=== PATIENT | male | born 1965 | race Caucasian/White ===

== ENCOUNTER 2024-10-16 22:39 | Inpatient (IN) | payer BC, SELFPAY ==
[2024-10-16] VITALS (38 sets, daily range): BP systolic 71–121; BP diastolic 51–78; BMI 24.4
--- NOTE | 2024-10-16 20:37 | ED.GENMED ---
History of Present Illness
General
Chief Complaint: Fever
Source: patient and spouse
Exam Limitations: none
Time Seen by Provider: 10/16/24 20:28
Nursing documentation reviewed up to this point in time: agreed with
History of Present Illness
History of Present Illness:
58-year-old male presents emergency department due to fever, body aches. Fever ongoing since Tuesday. Profuse sweating. Patient has had episodes of delirium. He began having lower abdominal pain after starting doxycycline. He was also diagnosed
with a hernia. Denies any travel history. He golfs and spends a lot of time outside. He saw urgent care and was diagnosed with pneumonia and given doxycycline.
Past History
Past History
ED Past Medical History: HTN
ED Past Surgical History: Appendectomy and Other (Hernia repair)
Social History
Tobacco: Non-smoker
Alcohol: Daily
Drug: None
Personal:
Living: with family
Employment: Employed
Review of Systems
Review of Systems
Allergies reviewed?: Yes
All Other Systems: Not applicable
Constitutional: Reports fever and chills
EENT: Reports no symptoms
Respiratory: Reports cough
Cardiac: Reports no symptoms
ABD/GI: Reports no symptoms
Phy Exam
Physical Exam
Physical Exam:
Physical Exam
General: Ill-appearing, jaundice, hypotensive
Neck: supple. no meningeal signs. normal posterior pharynx
Heart: s1/s2 regular rate and rhythm, no murmur. equal radial
pulses.
HEENT: Pupils equal round reactive to light, EOMI, sclera icteric
Lungs: no acute respiratory distress. clear bilaterally
Abdomen: normal bowel sounds. not tender. no CVAT
Neuro: alert and oriented. no focal neurological deficits cranial nerves II through XII intact
Skin: no rash
Psychiatric: well kept. interactive and cooperative
Extremities: no edema. no calf tenderness. negative homans. good distal pulses
Sepsis
Sepsis Screening
Sepsis Assessment: Septic Shock
Sepsis Screening: Hypotension, Bilirubin >2mg/dl, Sustained Hypotension-SBP <90,MAP<65, or SBP decrease 40mmHg or more and Vasopressor support required
Sepsis Screen
Sepsis Screen: Septic Shock
Date: 10/16/24
Time: 20:35
Course
Orders/Labs/Results
Orders:
Orders
10/16/24 20:29
Electrocardiogram (*1) Urgent
Reason for Study: Other
Other Reason for Exam: sepsis
Cardiac Monitoring- Treatment ONCE
EKG- Treatment ONCE
IV Insert/Care/Rem.- Treatment PRN
CR Chest Portable - 1 View Urgent
Comment:
Reason For Exam: short of breath, hypotensive
Reason Study Needs to be Portable: Patient Unstable
Pulse Ox/cont/shift [RESP] Urgent
Quantity: 1
10/16/24 20:31
0.9% Sodium Chloride 1000 ml [Nss] 2,000 ml IV BOLUS
10/16/24 20:52
Complete Blood Count/With Diff Urgent
Comprehensive Metabolic Panel Urgent
Direct Bilirubin Urgent
Comment: ADD ON
LDH Urgent
Comment: ADD ON
Lactic Acid Q4H
Comment: CANCEL 2nd LACTIC ACID IF 1st LACTIC ACID IS LESS THAN 2
Lipase Urgent
Manual Differential Urgent
PTT Urgent
Prothrombin Time Urgent
Blood Culture Q30M
BREANNA Source: Blood/Venous
Specimen Description:
Blood Culture Q30M
BREANNA Source: Blood/Venous
Specimen Description:
Influenza A+B Rapid Molecular Urgent
BREANNA Source: Nasal Swab
Specimen Description:
10/16/24 21:04
COVID-19 Antigen Urgent
Source: Nasal Swab
10/16/24 21:48
NORepinephrine 4 MG/250 ML [Levophed] 4 mg in 250 ml .ROUTE .STK-MED
10/16/24 21:49
NORepinephrine 4 MG/250 ML [Levophed] 4 mg in 250 ml IV NOW
Initial dose in mcg/min, then titrate:: 4
Titrate to keep:: MAP > 65 mmHg
Titrate by mcg/min:: 1-2 mcg/min
Frequency of titrations (minutes):: 5
Maximum dose in ICU in mcg/min:: 30
Maximum dose in IMU in mcg/min:: 8
Maximum dose in IVU in mcg/min:: 4
Begin to taper infusion when:: Remained at goal for 4hrs
Taper by mcg/min:: 1-2 mcg/min
Frequency of taper (minutes) if patient maintains goal:: 30
Taper to off?: Yes
If infusion off & no longer maintaining goal:: Contact Provider
10/16/24 22:00
Babesia Smear [Blood Parasites] Urgent
BREANNA Source: Blood/Venous
Specimen Description:
10/16/24 22:04
Azithromycin 500 mg/250 ml [Zithromax Infusion] 500 mg in 250 ml IV NOW
10/16/24 22:15
Atovaquone [Mepron Suspension] 750 mg PO NOW STA
10/16/24 22:16
Potassium Chloride [KCl] 40 meq PO NOW STA
10/16/24 22:26
US Abdomen Complete/Upper Routine
Comment:
Reason For Exam: elevated LFT
10/16/24 22:27
Add On- LAB Urgent
Tests Added?: direct bili, LDH
10/16/24 22:28
Admit/Transfer Patient As Directed
Co-Sign Provider:
Level of Care: Inpatient admission
Assign to:: ICU
Physician / Group: therese
Diagnosis: Babesiosis
Reason for Hospitalization: babesiosis
Expected length of stay greater than two midnights?: Yes
ELOS- Estimated Length of Stay in days: 3
I certify the patient meets the requirements for IP care: Yes
PRN Pain Medication Management As Directed
May give lesser potent ordered pain med per pt: Yes
preference::
Protocol:: Medication orders for pain may be administered in a
manner that supports deferring to patient preference
when the pt is:
- Requesting an ordered lesser potent pain medication.
Least to most potent pain medications are defined
as: acetaminophen < NSAID < tramadol < opioids
(morphine, oxycodone, hydromorphone).
- Requesting a lesser dose of the same medication IF
ORDERED.
- Requesting a less intrusive route of administration
if both routes are prescribed by the provider (PO <
IV).
10/16/24 22:29
Code Status As Directed
Resuscitation Status: Full Code
10/16/24 22:45
Blood Culture Q30M
BREANNA Source: Blood/Venous
Specimen Description:
10/16/24 23:15
Blood Culture Q30M
BREANNA Source: Blood/Venous
Specimen Description:
10/16/24 23:42
Urinalysis Reflex To Culture Urgent
Date Specimen was Collected: 10/16/24
Time Specimen was Collected: 23:41
10/17/24 00:01
0.9% Sodium Chloride 1000 ml [Nss] 1,000 ml IV 100 mls/hr
Bisacodyl [Dulcolax] 10 mg RECTAL [id number] PRN
Docusate W/Senna [Senokot-S] 1 tablet PO BIDPRN PRN
Ibuprofen [Motrin] 400 mg PO Q6HPRN PRN
NORepinephrine 4 MG/250 ML [Levophed] 4 mg in 250 ml IV PER PROTOCOL
Currently infusing. Continue current dose and titrate:: Yes
Titrate to keep:: SBP > 90 mmHg
Titrate by mcg/min:: 1-2 mcg/min
Frequency of titrations (minutes):: 5
Maximum dose in ICU in mcg/min:: 30
Maximum dose in IMU in mcg/min:: 8
Maximum dose in IVU in mcg/min:: 4
Begin to taper infusion when:: Remained at goal for 4hrs
Taper by mcg/min:: 1-2 mcg/min
Frequency of taper (minutes) if patient maintains goal:: 30
Taper to off?: Yes
If infusion off & no longer maintaining goal:: Contact Provider
Polyethylene Glycol Powder [Miralax] 17 grams PO DAILYPRN PRN
10/17/24 00:01
INFECTIOUS DISEASE CONSULT Routine
Consulting Provider: Lilly Gentile
Was physician already notified: Yes
NEPHROLOGY CONSULT Routine
Consulting Provider: Galilea Angel
Was physician already notified: Yes
Activity As Directed
Activity Level: As Tolerated
Vital Signs As Directed
Frequency: Per unit guidelines
DX Deep Vein Thrombosis Video Routine
10/17/24 00:15
Lyme PCR, DNA [S] Routine
10/17/24 Breakfast
Regular
At Your Request: Full Participation
Comprehensive Metabolic Panel IN AM
LDH IN AM
Lyme Progressive Routine
Reticulocyte Count IN AM
10/17/24 08:00
Atovaquone [Mepron Suspension] 750 mg PO Q12
10/17/24 18:00
Enoxaparin Sodium [Lovenox] 40 mg SC QPM
10/17/24 22:00
Azithromycin 500 mg/250 ml [Zithromax Infusion] 500 mg in 250 ml IV Q24H
Paroxetine [Paxil] 20 mg PO HS
10/18/24 06:00
Complete Blood Count/No Diff IN AM
Comprehensive Metabolic Panel IN AM
10/19/24 06:00
Complete Blood Count/No Diff IN AM
Comprehensive Metabolic Panel IN AM
10/20/24 06:00
Complete Blood Count/No Diff IN AM
Comprehensive Metabolic Panel IN AM
Abnormal Lab Results
10/16/24
20:52
RBC 3.11 L 10^6/uL
(4.70-6.10)
Hgb 10.9 L g/dL
(13.0-18.0)
Hct 29.1 L %
(39.0-52.0)
MCH 35.0 H pg
(27.0-31.0)
MCHC 37.5 H g/dL
(33.0-37.0)
Plt Count 33 L 10^3/uL
(130-400)
Lymphocytes (Manual) 11 L %
(20-51)
Monocytes (Manual) 12 H %
(2-9)
PT 15.0 H Sec
(11.4-14.6)
Sodium 123 L mmol/L
(135-145)
Potassium 3.2 L mmol/L
(3.5-5.1)
BUN 30 H mg/dl
(9-20)
Glucose 137 H mg/dl
(70-99)
Calcium 7.9 L mg/dl
(8.4-10.2)
Total Bilirubin 4.2 H mg/dl
(0.2-1.3)
Direct Bilirubin 1.8 H mg/dl
(0.0-0.4)
AST 95 H U/L
(17-59)
ALT 56 H U/L
(0-50)
Alkaline Phosphatase 132 H U/L
(38-126)
Lactate Dehydrogenase 995 H U/L
(120-246)
Albumin 2.9 L g/dl
(3.5-5.0)
10/16/24 20:52
10/16/24 20:52
Vital Signs
Initial and Last Documented VS:
Initial Vital Signs
Temp Pulse Resp BP Pulse Ox
99.7 F 96 18 80/53 98
10/16/24 20:15 10/16/24 20:15 10/16/24 20:15 10/16/24 20:15 10/16/24 20:15
Last Documented Vital Signs
Temp Pulse Resp BP Pulse Ox
100.5 F H 95 18 100/64 99
10/17/24 00:00 10/17/24 00:00 10/17/24 00:00 10/17/24 00:00 10/17/24 00:00
MDM/Problems Addressed
Differential Diagnosis Includes:
Pneumonia, diverticulitis
MDM/Problems Addressed:
58-year-old male with babesiosis, hyponatremia, thrombocytopenia, hypokalemia, hyperbilirubinemia, transaminitis. IV azithromycin, p.o. atovaquone given. Discussed with infectious disease and nephrology.
Chronic conditions affecting care: HTN
*Radiology
Radiology exam reviewed: radiology read reviewed (Chest x-ray no acute findings)
*Pulse Oximetry
SaO2: 98
Oxygen Mode of Delivery: Room air
Patient hypoxic: no
*EKG
Interpreted by ED Provider?: Yes
EKG Intrepretation Date: 10/16/24
EKG Intrepretation Time: 21:18
Interpretation: normal
Comparison EKG: no changes
Heart Rate: 92
Rate: normal
Rhythm: sinus
[place]: normal axis
Interval: normal interval
QRS Pattern: normal QRS
Ischemia: no ischemia
*Leno Sewer Interpretation
Rate: normal
Interpretation: normal
Heart Rate: 90
Rhythm: sinus
*Critical Care Note
Total Time (30-74mins, 75-104mins- exclusive of procedures): 55
comment:
Critical care statement: A total of 55 minutes of critical care time was provided for this patient. This includes management of unstable vital signs, evaluation of the patient at bedside, reviewing the patient's pertinent medical records, discussion
with consultants, review of old EKGs and review of pertinent medical records. This time with separate from time utilized to perform the aforementioned documented procedures
Data Reviewed
Further Testing Considered But Not Given:
ct a/p not indicated
ED Attending Note
-
Portions of this chart may have been created with voice recognition software.� Occasional wrong word or��sound alike� substitutions may have occurred due to the inherent limitations of voice recognition software.
Discharge Plan
Departure
Patient Disposition: Admit
Date of Disposition: 10/16/24
Time of Disposition: 22:08
Admit to: ICU
Presentation/result/management discussed w/ accepting MD/DO: Hospitalist
Patient with high blood pressure during this ER visit?: No
Condition: Fair
Discharge Problem:
Babesiosis, Thrombocytopenia, Acute hyponatremia, Hyperbilirubinemia, Transaminitis
Interventions
Interventions:
*Risk Screen - Suicide Last Done: 10/16/24 20:15
*General Assessment Last Done: 10/16/24 21:08
*Neglect/Abuse Screening Last Done: 10/16/24 20:15
*ED- Fall Risk Assessment Last Done: 10/16/24 21:08
*ED COVID-19 Vaccine History Last Done: 10/16/24 21:08
*Nursing Disposition Last Done: 10/17/24 00:07
ED- Neurological Assessment Last Done: 10/16/24 21:09
ED-Skin Assessment Last Done: 10/16/24 21:09
Discharge Date and Time
Discharge Date/Time: 10/17/24 00:08
[2024-10-16] MEDS: NSS 2000 IV (20:51)
[2024-10-16 21:10] LABS: INR 1.15; PT 15.0 Sec (11.4-14.6)
[2024-10-16 21:11] LABS: APTT 34.5 Sec (23.4-35.0)
[2024-10-16 21:18] LABS: ALT (SGPT) 56 U/L (0-50); AST (SGOT) 95 U/L (17-59); Albumin 2.9 g/dl (3.5-5.0); Alkaline Phosphatase 132 U/L (38-126); Blood Urea Nitrogen 30 mg/dl (9-20); Calcium 7.9 mg/dl (8.4-10.2); Carbon Dioxide 25 mmol/L (22-30); Chloride 100 mmol/L (98-107); Estimated Creatinine Clearance 76 ml/min; Glucose 137 mg/dl (70-99); Lipase 88 U/L (23-300); Potassium 3.2 mmol/L (3.5-5.1); Sodium 123 mmol/L (135-145); Total Protein 6.3 g/dl (6.3-8.2); eGFR > 60.00
[2024-10-16 21:26] LABS: Hematocrit 29.1 % (39.0-52.0); Hemoglobin 10.9 g/dL (13.0-18.0); Mean Corp Hgb Conc. 37.5 g/dL (33.0-37.0); Mean Corpuscular Volume 93.6 fL (80.0-94.0); Red Cell Dist. Width 13.3 % (11.5-14.5)
[2024-10-16 21:29] LABS: COVID-19 Antigen Negative (Negative)
[2024-10-16 21:53] LABS: Absolute Neutrophils -Man Diff 3.8 10^3/uL (1.4-6.5)
[2024-10-16] MEDS: LEVOPHED 250 IV (21:53)
[2024-10-16 21:54] LABS: Anisocytosis 1+; Macrocytosis 1+; Normal RBC Morphology No; Platelets Checked Yes
[2024-10-16 21:57] LABS: Hypochromasia 1+; Platelet Count 33 10^3/uL (130-400); Total Cells Counted 100
--- NOTE | 2024-10-16 22:11 | HPS.HSE ---
Family Physician
-
Family Physician: PHYSICIAN PRIVATE
Chief Complaint
-
fever
History of Present Illness
58 year old with PMH for HTN presented to us with fever, generalized weakness, cough for past 5 days. he was confused today and his temp was 103 at home. took Tylenol. he complained of SINGH, dizzy. denied chest pain, sob. he is complaining of
abdominal pain. denied n/v/d. denied dysuria or hematuria.
conern for Babesios. receieved a dose of Atovaquone, Azithromycin. started on Levophed for hypotension. admiting for further management.
Medical History
Past Medical History
Past Medical History: Reports Other
Additional Past Medical History:
HTN
Past Surgical History: Reports Other
Additional Past Surgical History:
appendectomy
hernia surgery
Social History
Tobacco: Former Smoker
Alcohol: Occasional
Drug: None
Personal:
Living: With Family
Family History
Family History: Not pertinent
Allergies / Home Medications
Allergies reflects when Allergies were last updated in [email or web address]
Home Medications with original date entered in [email or web address].
Allergy/Medication List:
Allergies
Allergy/AdvReac Type Severity Reaction Status Date / Time
No Known Allergies Allergy Unverified 10/16/24 20:14
Home Medications
acetaminophen 500 mg tablet (Tylenol Extra Strength) 1,000 mg PO Q6HPRN PRN mild pain/fever 10/16/24
bisoprolol 5 mg-hydrochlorothiazide 6.25 mg tablet 1 tab PO HS 10/16/24
doxycycline hyclate 100 mg capsule 100 mg PO BID 10/16/24
ibuprofen 200 mg tablet 600 mg PO Q6HPRN PRN mild pain/fever 10/16/24
yklityhjtxrx-cxw-obopg acid-vit K-lycop 400 mcg-20 mcg-370 mcg tablet (Men's 50 Plus Multivitamin) 1 tab PO HS 10/16/24
paroxetine HCl 20 mg tablet 20 mg PO HS 10/16/24
Review of Systems
-
Constitutional: Reports Fever, Fatigue and Chills
EENT: Reports No Symptoms
Respiratory: Reports Cough
Cardiac: Reports No Symptoms
Abdomen/GI: Reports No Symptoms
: Reports No Symptoms
Musculoskeletal: Reports No Symptoms
Skin: Reports No Symptoms
Neurological: Reports Dizzy, Headache and Weakness
Endocrine: Reports No Symptoms
Hematologic/Lymphatic: Reports No Symptoms
Psych: Reports No Symptoms
Physical Exam
Vital Signs
Vital Signs
Temp Pulse Resp BP Pulse Ox
99.7 F 84 27 98/63 97
10/16/24 20:15 10/16/24 21:55 10/16/24 21:55 10/16/24 21:55 10/16/24 21:55
Physical Exam
General: Well Developed, Well Nourished and No Apparent Distress
HEENT: NormoCephalic, Moist mucous membranes and Atraumatic
Respiratory: Clear
Cardiac: S1/S2 and Regular Rhythm; No Murmur or Rub
GI: Soft, Non Tender, Non Distended and Normal Bowel Sounds; No Organomegaly
Rectal: Deferred by Provider
Musculoskeletal: No Clubbing, No Cyanosis and No Edema
Skin: No Rash
Neuro: AO x 3 and Nonfocal/grossly intact
Psych: Calm
Laboratory Results
-
10/16/24 20:52
10/16/24 20:52
Laboratory Results
PT 15.0 Sec (11.4-14.6) H 10/16/24 20:52
INR 1.15 10/16/24 20:52
APTT 34.5 Sec (23.4-35.0) 10/16/24 20:52
Lactic Acid 1.8 mmol/L (0.7-2.0) 10/16/24 20:52
Total Bilirubin 4.2 mg/dl (0.2-1.3) H 10/16/24 20:52
AST 95 U/L (17-59) H 10/16/24 20:52
ALT 56 U/L (0-50) H 10/16/24 20:52
Alkaline Phosphatase 132 U/L (38-126) H 10/16/24 20:52
Lipase 88 U/L (23-300) 10/16/24 20:52
Data Reviewed
-
Lab Data: Labs Reviewed by me
Impression/Plan
-
#septic shock secondary to Babesiosis
-on Levophed
-zithro and atovaquone continued
-ID consulted
-Tylenol prn for fever
-platelets 94
-blood culture sent from ER
#Hyponatremia hypovolemic
#hypokalemia
-na 123, k3.2
-normal saline continued
-BMP in am
-oral kcl
#transaminitis/jaundice secondary to Babesiosis
-ctm
-US of abdomen ordered
#essential HTN
-hold Bisoprolol-hctz
#anxiety
-Paxil continued
#DVT prophylaxis
-Lovenox
#CODE status
-full code
--- NOTE | 2024-10-16 22:27 | W.PN.UPDATE ---
Update Note
Progress Note Update
I have independently examined the patient and agree with H&P written on the same date. In addiion:
58yo M with 4-5 days of malaise, fever found erythrocyte inclusions in hematology bloodwork, concern for babesiosis with signs of hemolysis (elevated bili). No RUQ abd pain noted. Concominant hyponatremia
- As per ID reccs provided to ED attending: Azythromycin and Atovaquone
-check Lyme
-Follow LDH, retics, Hgb, LFT
-IVF, follow BMP, Nephro consult
-Monitor in ICU
We have spent at least 78min critical care time admitting the patient
[2024-10-16] MEDS: MEPRON SUSPENSION 750 MG PO (22:48)
[2024-10-16] MEDS: ZITHROMAX INFUSION 250 IV (22:48)
[2024-10-16 23:01] LABS: LDH 995 U/L (120-246)
[2024-10-16] MEDS: KCL 40 MEQ PO (23:36)
[2024-10-17] VITALS (55 sets, daily range): BP systolic 79–125; BP diastolic 53–82; BMI 24.6
[2024-10-17 00:01] LABS: Urine Character Cloudy (Clear)
[2024-10-17 00:09] LABS: Glucose - Point of Care 184 mg/dl (70-99)
[2024-10-17] MEDS: NSS 1000 IV ×3 (00:22→19:59)
[2024-10-17] MEDS: MOTRIN 400 MG PO (00:39)
--- NOTE | 2024-10-17 01:00 | PTCARENOTE ---
rec`d pt from ED AAOx3. assessment as documented. SR on monitor. RA. non productive harsh cough. reg diet. urinal. PIVS flushed and patent. at bedside. KELSI Abbott at bedside.
--- NOTE | 2024-10-17 01:00 | PTCARENOTE ---
pt increased to 8L NC per [employer]PER[employer]IAL verbal orders.
[2024-10-17 01:03] LABS: Urine Squamous Cell None seen /LPF (Few)
--- NOTE | 2024-10-17 02:02 | W.PN.UPDATE ---
Update Note
Progress Note Update
0100- Patient having increased work of breathing oxygen saturation on monitor was 95%, belly breathing and RR 28. Hemolytic anemia, and now increased work of breathing increased oxygen nasal cannula to midflow 8 L.
[2024-10-17 05:19] LABS: B.E. -0.8 mmol/L; HCO3 23.2 mmol/L (21-28); O2 Saturation % 98.7 % (94-98); PCO2 35 mmHg (35-48); PO2 189 mmHg (83-108)
[2024-10-17 05:35] LABS: Hematocrit 27.5 % (39.0-52.0); Hemoglobin 10.0 g/dL (13.0-18.0); Mean Corp Hgb Conc. 36.4 g/dL (33.0-37.0); Mean Corpuscular Volume 94.8 fL (80.0-94.0); Platelet Count 45 10^3/uL (130-400); Red Cell Dist. Width 13.2 % (11.5-14.5); Reticulocyte Count 7.2 % (0.4-2.8)
[2024-10-17 05:37] LABS: INR 1.24; PT 15.9 Sec (11.4-14.6)
[2024-10-17 05:38] LABS: APTT 34.9 Sec (23.4-35.0)
--- NOTE | 2024-10-17 05:58 | W.PN.SEPSIS ---
Sepsis
Vital Signs
Temp Pulse Resp BP Pulse Ox
100 F 65 20 110/79 100
10/17/24 03:06 10/17/24 05:15 10/17/24 05:15 10/17/24 05:00 10/17/24 05:15
Physical Exam
Physical Exam:
A focused exam was performed after fluid resuscitation.
Capillary Refill
Bilateral Upper Extremity:
Remy Time: Less than 3 sec
Bilateral Lower Extremity:
Remy Time: Less than 3 sec
Pulse Evaluation
Bilateral Radial:
Pulse Evaluation: Present
Bilateral Dorsalis Pedis:
Pulse Evaluation: Present
[2024-10-17 05:59] LABS: ALT (SGPT) 56 U/L (0-50); AST (SGOT) 80 U/L (17-59); Albumin 2.5 g/dl (3.5-5.0); Alkaline Phosphatase 110 U/L (38-126); Blood Urea Nitrogen 23 mg/dl (9-20); Calcium 7.1 mg/dl (8.4-10.2); Carbon Dioxide 24 mmol/L (22-30); Chloride 107 mmol/L (98-107); Estimated Creatinine Clearance 101 ml/min; Glucose 189 mg/dl (70-99); Magnesium 2.0 mg/dl (1.6-2.3); Potassium 3.5 mmol/L (3.5-5.1); Sodium 129 mmol/L (135-145); Total Protein 5.6 g/dl (6.3-8.2); eGFR > 60.00
[2024-10-17 06:08] LABS: LDH 945 U/L (120-246)
[2024-10-17] MEDS: FLEXBUMIN 100 IV (06:18)
[2024-10-17] MEDS: KCL 40 MEQ PO (06:18)
[2024-10-17 06:20] LABS: Absolute Neutrophils -Man Diff 4.6 10^3/uL (1.4-6.5)
[2024-10-17] MEDS: LEVOPHED 250 IV (06:20)
[2024-10-17] MEDS: CALCIUM GLUCONATE 100 IV (06:20)
[2024-10-17 06:21] LABS: Anisocytosis 1+; Normal RBC Morphology No; Platelets Checked Yes; Total Cells Counted 100
--- NOTE | 2024-10-17 07:08 | CON.INTV ---
Addendum entered and electronically signed by Candice Alvarez MD 10/17/24 12:40:
Patient seen and examined independently by myself. Resident note reviewed below, agree with assessment and plan
Briefly, patient is an otherwise healthy 58-year-old male whose history dates back to prior to admission when he developed fevers, body aches, sweats. The symptoms persist along with headaches, dizziness. He was evaluated in urgent care
on Tuesday, was told he had pneumonia and was given antibiotic with no improvement. Because of persistent symptoms he brought himself in to [facility] where he was found to have blood pressure 70/50, febrile, hyponatremia, acute
transaminitis, abnormal urine analysis, anemia and thrombocytopenia with reticulocytosis. Patient had abnormal blood smear, blood smear revealed Babesia species. Patient was given IV fluids, required pressors, started on atovaquone and
azithromycin. Patient mated to ICU for further management
Presently, patient is feeling much improved. He denies any shortness of breath, chest pain, nausea, abdominal pain. He did require 8 L mid flow through the night but denies any symptoms
Details regarding past medical history, social history, family history, review of systems please see below. Patient denies any allergies
Presently systolic pressure 110s, afebrile, no evidence of tachycardia. 100% on 8 L mid flow
Physical exam is essentially unremarkable, chest exam is clear
There is no rash
Data reviewed
Platelets 45
Hemoglobin 10, baseline around 13
EKG unremarkable
A/P
At this time, patient remains critically ill requiring pressors but seems to be improved clinically following IV fluids, antibiotics
Blood smear positive for babesiosis
Patient denies any significant outdoor activity but traveled throughout the [place] with work
Denies any sick contacts, denies any recent travel
Patient denies any abdominal pain, nausea
Moving forward
Continue with azithromycin, dosing noted
Continue with atovaquone
Follow hemoglobin, check CBC later p.m.
Follow electrolytes
Wean oxygen
Hyperglycemia noted. Check hemoglobin A1c
reviewed with critical care nursing, respiratory care, pharmacy
Reviewed with primary service
TCCT 31 min
Original Note:
Consultation
Consultation Request
Date/Time Consultation Requested: October 17, 2024 06:30
Date/Time Consultation Performed: October 17, 2024 07:00
Medical History
-
Chief Complaint: weakness
History of Present Illness:
58 yo M PMH of HTN, hernia p/w fever, body aches, sweating, cough for 5 days duration. Endorsed headache, dizziness, confusion, but denies chest pain, dyspnea. Endorsed abdominal pain but denies nausea/vomiting/diarrhea.
In the ED, was found to be hypotensive with BP of 80s/50s, received 2 L normal saline, repeat BP was 100s/60s.
An erythrocyte smear was noted for inclusion bodies raising the concern for babesiosis.
Given the initial presentation with suspected infection and hypotension requiring pressors, he was admitted to ICU for further management.
Interim events/this AM: he reports feeling well.
Past Medical History
Past Medical History: HTN
Past Surgical History: Other (appendectomy, hernia repair)
Social History
Tobacco: Former Smoker
Alcohol: Occasional
Drug: None
Personal:
Living: With Family
Allergies / Home Medications
Allergies
Allergy/AdvReac Type Severity Reaction Status Date / Time
No Known Allergies Allergy Unverified 10/16/24 20:14
Home Medications
�Medication �Instructions �Recorded �Confirmed �Last Taken �Type
acetaminophen 500 mg tablet 1,000 mg PO Q6HPRN PRN mild 10/16/24 10/16/24 10/16/24 History
(Tylenol Extra Strength) pain/fever
bisoprolol 5 1 tab PO HS 10/16/24 10/16/24 10/15/24 History
mg-hydrochlorothiazide 6.25 mg
tablet
doxycycline hyclate 100 mg capsule 100 mg PO BID 10/16/24 10/16/24 10/16/24 History
ibuprofen 200 mg tablet 600 mg PO Q6HPRN PRN mild 10/16/24 10/16/24 10/16/24 History
pain/fever
lvpakntgmtke-ufi-hoxcz acid-vit 1 tab PO HS 10/16/24 10/16/24 10/15/24 History
K-lycop 400 mcg-20 mcg-370 mcg
tablet (Men's 50 Plus Multivitamin)
paroxetine HCl 20 mg tablet 20 mg PO HS 10/16/24 10/16/24 10/15/24 History
Review of Systems
-
Constitutional: Fever and Fatigue
Respiratory: No Symptoms
Cardiac: No Symptoms
Abdomen/GI: Abdominal Pain
: No Symptoms
Musculoskeletal: No Symptoms
Skin: No Symptoms
Neuro: Dizzy and Headache
Endocrine: No Symptoms
Hematologic/Lymphatic: No Symptoms
Vitals / Labs / Diagnostic Testing
Vital Signs
Temp Pulse Resp BP Pulse Ox
100 F 65 20 110/79 100
10/17/24 03:06 10/17/24 05:15 10/17/24 05:15 10/17/24 05:00 10/17/24 05:15
Lab Data
10/17/24 05:17
10/17/24 05:17
Laboratory Results
10/16/24 10/17/24 10/17/24
20:52 05:13 05:17
PT 15.0 H 15.9 H
INR 1.15 1.24
APTT 34.5 34.9
pH 7.43
pCO2 35
pO2 189 H
HCO3 23.2
O2 Delivery Level
Microbiology
Labs:
WBC within normal limits at 5.7
Hgb of 10.0 (baseline from april 2023 of 14.8)
Plt of 45k
Reticulocyte % elevated at 7.2 (upper limit of normal 2.8%)
Haptoglobin pending
Na+ 129
K+ 3.5
Cr 0.9
Total bilirubin 2.9 (4.2 on admission)
Direct bilirubin 1.5 ((1.8 on admission)
AST 80
ALT 56
LDH 945
Na+ 129
Ca2+ 7.1
Albumin 2.5
K+ 3.5
UA:
Urne occult blood 4+
Urobilinogen 2+
RBC 11-15
Few bacteria
3+ albumin
Microbiology:
Blood parasite smear - babeisa species
Lyme panel pending
Urine, blood cultures pending
10/16/24 20:52 Nasal Swab Influenza Types A & B (THIERRY) - Final
Negative for Influenza A & B, NAAT
Negative results must be combined with clinical observations
and patient history.
Nucleic Acid Amplification test (NAAT)performed on the
[employer] platform.
Diagnostic Testing:
CXR: 10/17/2024
IMPRESSION:
1. Normal heart size without evidence for acute pulmonary edema.
2. No radiographic evidence for pneumonia or pleural effusion.
3. Mild elevation of the left hemidiaphragm.
4. Moderate tortuosity of the distal descending thoracic aorta.
Abdominal Ultrasound 10/17/2024
IMPRESSION:
Normal appearance of the gallbladder.
Common bile duct is mildly dilated, measuring 6.1 mm. No sonographic evidence for bile duct calculus.
Mild hepatomegaly. Mild splenomegaly.
Physical Exam
-
HEENT: Normocephalic
Cardiovascular: Regular Rhythm and Other (no murmurs)
Respiratory: Clear
GI: Soft, Non Distended and Non Tender
Neurology: Awake, Alert and No Motor Deficits
Skin: Warm and Dry
General: Comfortable
Assessment
-
58 yo M PMH HTN p/w fever, weakness, fatigue, headache, dizziness for several days and found to have babesiosis.
It is unclear why this patient, who was otherwise in his usual state of health, would present with signs of sepsis/septic shock given the hypotension, elevated temperature, tachypnea + infection to satisfy SIRS criteria. This raises a concern for
possible immunocompromise. an elevated blood glucose (180s) raises concern for whether underlying DM.
His CBC labs is consistent with hemolysis with indirect hyperbilirubinemia (admission labs had TBili of 4.2, and Direct Bili of 1.8, c/w predominantly indirect hyperbilirubinemia). He has thrombocytopenia, but no signs of bleeding. A follow-up CBC
may be warranted to track Hgb and Plt count.
Neuro:
- awake, alert
CV:
- norepinephrine 4mg
- NS 100 mL/hr
Respiratory:
- RR in 20s
- appropriate SpO2, denies dyspnea
Renal:
- Ca2+ repleted
- Albumin repleted
- K+ repleted
ID:
- azithromycin, atovaquone
- f/u ID reccs
Heme:
- lovenox
- PM CBC to track Hgb and Plt.
Endo:
- Check HbA1c
Plan summary:
- PM CBC
- check HbA1c
- continue antibiotics and follow-up ID recommendations
Recommendations are not final until attending attestation
Data Reviewed
-
Radiology: Report reviewed by me
Ultrasound: Report reviewed by me
--- NOTE | 2024-10-17 08:40 | W.PN.HOSP.TC ---
Addendum entered and electronically signed by Caterina Headley MD 10/17/24 13:09:
Septic Shock 2/2 Babesiosis
-IV levophed, wean as able
-IVF as below
Original Note:
Today's Communication/Plan
-
see plan
Assessment / Plan
Assessment / Plan
Mr. Richar Hope is a 58 yo man with hx essential HTN, depression, presents to the ER with 4-5 days of malaise and fever found to have babesiosis and evidence of hemolysis.
CXR 10/16/24
IMPRESSION:
1. Normal heart size without evidence for acute pulmonary edema.
2. No radiographic evidence for pneumonia or pleural effusion.
3. Mild elevation of the left hemidiaphragm.
4. Moderate tortuosity of the distal descending thoracic aorta.
RUQ US
IMPRESSION:
Normal appearance of the gallbladder.
Common bile duct is mildly dilated, measuring 6.1 mm. No sonographic evidence for bile duct calculus.
Mild hepatomegaly. Mild splenomegaly.
Babesiosis
Transaminitis
Hemolytic Anemia
Thrombocytopenia
-Azythromycin and Atovaquone initiated after discussion between attending and iD
-formal ID consult today
-continue IV Azithromycin and Atovaquone
-check Lyme
-Follow LDH, retics, Hgb, liver enzymes
Hypoxic resp insufficiency
-patient currently denying shortness of breath, SpO2 100%
-weaning O2 as able
-appreciate [employer] Estimator consult
Hyponatremia
-Na improved from 123 to 129 post treatment sepsis
-I will lower fluid rate, trend Na q 6 hours
-Renal consulted
-hold COMMODITIES CLERK HCTZ
Anxiety
-COMMODITIES CLERK Praoxetine, likely OK to continue as Na improving with IVF
DVT PPx SCD 2/2 thrombocytopenia
FULL CODE
Anticipated Discharge: > 48 hours
Subjective/Interval History
-
Date of Service: October 17, 2024
states he is feeling better than when he came in
he denies shortness of breath
denies abdominal pain
Objective Data
-
Labs:
Laboratory Results
10/16/24 10/17/24 10/17/24
20:52 05:13 05:17
WBC 5.3 5.7
Hgb 10.9 L 10.0 L
Hct 29.1 L 27.5 L
Plt Count 33 L 45 L D
PT 15.0 H 15.9 H
INR 1.15 1.24
APTT 34.5 34.9
HCO3 23.2
Sodium 123 L 129 L
Potassium 3.2 L 3.5
Chloride 100 107
Carbon Dioxide 25 24
BUN 30 H 23 H
Creatinine 1.2 0.9
Glucose 137 H 189 H
Calcium 7.9 L 7.1 L
Total Bilirubin 4.2 H 2.9 H
AST 95 H 80 H
ALT 56 H 56 H
Alkaline Phosphatase 132 H 110
10/17/24 10/17/24
11:00 17:00
WBC
Hgb
Hct
Plt Count
PT
INR
APTT
HCO3
Sodium Pending Pending
Potassium
Chloride
Carbon Dioxide
BUN
Creatinine
Glucose
Calcium
Total Bilirubin
AST
ALT
Alkaline Phosphatase
Vital Signs:
Vital Signs
Temp Pulse Resp BP Pulse Ox
97.7 F 64 22 112/72 100
10/17/24 07:34 10/17/24 07:45 10/17/24 07:45 10/17/24 07:30 10/17/24 07:45
I&O
10/16/24 10/17/24 10/18/24
06:59 06:59 06:59
Intake Total 712.5 / 1042.5 330 / 330
Output Total 650 / 1325 675 / 675
Balance 62.5 / -282.5 -345 / -345
Review of Systems
-
History Source: Patient
All other systems: Reviewed and negative
Physical Exam
-
General: No Apparent Distress
HEENT: PERRLA
Respiratory: Clear to Auscultation; Negative Wheezes
Cardiac: Regular Rhythm and S1/S2
GI: Soft and Nontender
Musculoskeletal: No Edema
Skin: Warm and Dry; Negative Rash
Neuro: AO x 3
Psych: Calm
Data Reviewed
-
Diagnostic Radiology: Report Reviewed by me
Labs: Labs Reviewed by me
[2024-10-17] MEDS: MEPRON SUSPENSION 750 MG PO ×2 (08:54→19:56)
--- NOTE | 2024-10-17 09:41 | CON.ID ---
Consultation
-
Date/Time Consultation Requested: October 17, 2024 0001
Date/Time Consultation Performed: October 17, 2024 0940
Requesting Provider: Dr. Caterina Headley
Performing Provider: Dr. Lilly Gentile
Reason for Consultation: Suspected Babesia
Chief Complaint / Past History
Chief Complaint
Weakness, fatigue, fever
History of Present Illness
58-year-old male with history of hypertension who presented to the hospital with jaundice, fever, fatigue. He reports he started feeling unwell approximately October 09 with fatigue and malaise. He was sleeping a lot. Complained of
bodyaches, headache, on and off fevers. By Tuesday, October 13 he felt worse and therefore on Tuesday he went to urgent care. Chest x-ray ordered. He was told he had pneumonia although patient without cough. He was started on doxycycline. He felt
worse on the doxycycline with nausea and GI upset. His fever escalated to 103 and he was confused. Therefore he finally decided to come to the ER last night. Patient noted to be hypotensive with systolic blood pressure in the low 70s.
Temperature 100.5. Platelet 45. Hemoglobin 10. Bilirubin 4.2, mostly indirect, AST ALT elevated. Reticulocyte count elevated. Parasite smear preliminary last night showed ring forms inside red cells. ER started azithromycin 500 mg IV every 24
hours. On-call ID recommended adding atovaquone 750 mg p.o. twice daily. Patient blood pressure did not respond to IV fluids. He is currently on Levophed. Today parasite blood smear resulted as 7.5% babesia. Overnight patient became hypoxic
requiring mid-flow oxygen. Chest x-ray no acute pathology. Today, pt's mental status better. He reports spending time outdoors often including golfing, yardwork, etc. He uses insect repellant pn his face/scalp only.
Past History
Additional Past Medical History:
Hypertension
Anxiety
Additional Past Surgical History:
Appendectomy
Hernia repair
Allergy History:
No Known Allergies Allergy (Unverified 10/16/24 20:14)
Medications Reviewed: Yes
Current Antibiotics:
Atovaquone 750 mg p.o. every 12 hours
Azithromycin 500 mg IV every 24 hours
Social History
Tobacco: Former Smoker
Alcohol: Occasional
Drug: None
Personal:
Living: With Family
Family History
Family History: Not Pertinent
Review of Systems
Review of Systems
General: Fever, Chills and Change in Appetite
HEENT: Headache; Negative Sinus Problems or Pharyngitis
Cardiovascular: Dyspnea; Negative Chest Pain
Respiratory: Negative Cough or Sputum Production
Gasteroenterology: Nausea; Negative Vomiting or Diarrhea
Genital / Urological: Negative Dysuria or Flank Pain
Endocrine: Weakness and Fatigue
Musculoskeletal: Myalgias
Skin / Hair / Nails: Negative Rash
Neurological: Dizziness
All systems: All other systems were reviewed and were negative
Vital Signs
Temp Pulse Resp BP Pulse Ox
97.7 F 73 19 120/74 98
10/17/24 07:34 10/17/24 09:00 10/17/24 09:00 10/17/24 09:00 10/17/24 09:00
Selected Entries
10/17/24
00:00
Temp 100.5 F H
Physical Exam
Physical Exam
Constitutional: Acutely Ill
Head: Other (No frontal or max or sinus tenderness)
Eyes: No Conjunctival Hemorrhage and Other (Sclera icteric)
Cardiovascular: Regular Rate and S1/S2
Pulmonary: Clear
Gastrointestinal: Soft, Non Tender, Non Distended and Normal Bowel Sounds
Genito-Urinary: Negative CVA Tenderness
Extremities: Negative Edema
Musculoskeletal: Negative Joint Swelling or Joint Effusion
Skin: Jaundice; Negative Rash
Neurological: AO x 3; Negative Meningeal Signs
Lab / Diagnostic Study Results
10/17/24 05:17
Total Counted 100 10/17/24 05:17
Abs Neuts (Manual) 4.6 10^3/uL (1.4-6.5) 10/17/24 05:17
Segmented Neutrophils 80 % (42-75) H 10/17/24 05:17
Band Neutrophils 1 % (0-3) 10/17/24 05:17
Lymphocytes (Manual) 12 % (20-51) L 10/17/24 05:17
Eosinophils (Manual) 1 % (0-6) 10/16/24 20:52
PT 15.9 Sec (11.4-14.6) H 10/17/24 05:17
INR 1.24 10/17/24 05:17
Lactic Acid Cancelled 10/17/24 00:30
Ur Squamous Epith Cells None seen /LPF (Few) 10/16/24 23:42
Microbiology Results
Micro:
10/16/24 22:00 Blood Parasites Smear - Final
Blood/Venous Babesia species
10/17/24 00:15 Blood Culture - Pending
Blood/Venous
10/17/24 00:15 Blood Culture - Pending
Blood/Venous
10/16/24 23:42 Urine Culture - Pending
Urine
10/16/24 20:52 Blood Culture - Pending
Blood/Venous
10/16/24 20:52 Blood Culture - Pending
Blood/Venous
10/16/24 20:52 Influenza Types A & B (THIERRY) - Final
Nasal Swab Negative for Influenza A & B, NAAT
Negative results must be combined with clinical observations
and patient history.
Nucleic Acid Amplification test (NAAT)performed on the
[employer] platform.
10/16/24 CXR: Normal heart size without evidence for acute pulmonary edema. No radiographic evidence for pneumonia or pleural effusion.
10/17/24 ABD US: Normal appearance of the gallbladder. Common bile duct is mildly dilated, measuring 6.1 mm. No sonographic evidence for bile duct calculus. Mild hepatomegaly. Mild splenomegaly.
Assessment / Plan
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
# Septic shock from babesiosis on pressor
# Fever
# Acute anemia, thrombocytopenia due to babesia
# Elevated LFT's
# Acute hypoxic insufficiency
- Give additional 500mg IV azithromycin now, then increase azithromycin to 1000mg IV q24.
- Continue Atovaquone 750mg po bid
- Repeat parasite smear in am.
- Low threshold to start exchange transfusions if patient continues to deteriorate.
- Continue ICU support
- Trend temps/cbc/LFT's
- Ordered Anaplasma/Erhlichia PCR to assess for co-infections.
--- NOTE | 2024-10-17 09:45 | PTCARENOTE ---
Rec'd care of patient at 0700. Patient alert and oriented. MAEx4. SB/NSR on tele. Rate in the 40-50's while asleep. No edema. Palpable pulses. Pulse ox 100% on 8L MF. Weaned to 2L. Denies SOB. Lung sounds diminished in b/l bases. +BS. No BM.
Appetite good. Voiding via urinal. Tea colored. IVFs and Levophed infusing through peripheral INT. Weaning Levophed as tolerated; goal SBP>90. See worklist for full assessment and care.
[2024-10-17] MEDS: ZITHROMAX INFUSION 250 IV (10:20)
--- NOTE | 2024-10-17 10:25 | W.CON.NEPH ---
Addendum entered and electronically signed by Severino Cordova MD 10/17/24 18:08:
Resident note reviewed with the following additions
58-year-old with hypertension treated with a multidrug regimen mostly only recently. States that his blood pressures have been well-controlled on this regimen. He was admitted because of multiple systemic symptoms including fatigue body aches
sweating and confusion. He gone to urgent care and was given doxycycline for probable pneumonia. GI upset with doxycycline but continued it. He ultimately came to emergency room because of failure of improvement. Workup disclosed babesiosis with
7.5% parasitemia. He developed hypotension requiring pressor therapy. He is currently pancytopenic. We are asked to assist with management of hyponatremia at 123.
I agree with the physical exam
Lab values reviewed including past values. Sodium on 04/20/2023 was 132
Abdominal ultrasound 10/17/2024 right kidney is 12.7 cm, left kidney 11.9 cm, liver length slightly above top normal also splenomegaly
Chest x-ray 10/16/2024 by my reading no acute disease
EKG 10/16/2024 by my reading shows normal sinus rhythm nonspecific inferior T wave abnormality
Impression
Hyponatremia
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
Septic shock secondary
Acute hemolytic anemia
Acute thrombocytopenia
Pancytopenia
Hyperbilirubinemia
Elevated transaminases
Hypertension
Plan
Hyponatremia likely secondary to volume depletion and appropriate excess ADH.
Aggressive IV fluid repletion
Follow BMP.
Hold hydrochlorothiazide.
May continue Paxil for now
Maintain mean arterial pressure greater than 65
Critical care time spent 31 minutes
Original Note:
Consultation
-
Date/Time Consultation Requested: 10-17-24
Date/Time Consultation Performed: 10-17-24
Requesting Provider: Shayy Olea
Performing Provider: Dr. Severino Cordova
Reason for Consultation: Hyponatremia
Medical History
-
Chief Complaint: Fatigue, fever
History of Present Illness:
Richar Hope, 58-year-old with primary hypertension and anxiety, has had fevers, fatigue, body aches, profuse sweating and intermittent episodes of delirium for the past week. He developed symptoms last week and went to the urgent care where he
was given doxycycline for presumed pneumonia. Developed abdominal pain with the medication, and he symptoms did not improve which promoted the hospital visit. Found to have babesiosis with a 7.5% parasitemia. Hypotensive requiring norepinephrine,
managed in the ICU. Nephrology is consulted for hyponatremia. No urine studies checked prior to volume resuscitation.
Past Medical History
Past Medical History: HTN
Past Surgical History: Appendectomy and Other (hernia)
Social History
Tobacco: Former Smoker
Alcohol: Occasional
Drug: None
Personal:
Living: Other (near [facility])
Family History
Family History: Not Pertinent
Allergies / Home Medications
Allergy/AdvReac Type Severity Reaction Status Date / Time
No Known Allergies Allergy Unverified 10/16/24 20:14
�Medication �Instructions �Recorded �Confirmed �Type
acetaminophen 500 mg tablet 1,000 mg PO Q6HPRN PRN mild 10/16/24 10/16/24 History
(Tylenol Extra Strength) pain/fever
bisoprolol 5 1 tab PO HS 10/16/24 10/16/24 History
mg-hydrochlorothiazide 6.25 mg
tablet
doxycycline hyclate 100 mg capsule 100 mg PO BID 10/16/24 10/16/24 History
ibuprofen 200 mg tablet 600 mg PO Q6HPRN PRN mild 10/16/24 10/16/24 History
pain/fever
sphigoygovmb-qvg-fuohw acid-vit 1 tab PO HS 10/16/24 10/16/24 History
K-lycop 400 mcg-20 mcg-370 mcg
tablet (Men's 50 Plus Multivitamin)
paroxetine HCl 20 mg tablet 20 mg PO HS 10/16/24 10/16/24 History
Review of Systems
-
History Source: Patient
All other systems: Negative unless noted
Constitutional: Fever, Fatigue, Night Sweats and Chills
EENT: No Symptoms
Respiratory: No Symptoms
Cardiac: No Symptoms
Abdomen/GI: No Symptoms
: No Symptoms
Musculoskeletal: Muscle Pain
Skin: No Symptoms
Neurological: No Symptoms
Endocrine: No Symptoms
Hematologic/Lymphatic: No Symptoms
Physical Exam
Vital Signs
Vital Signs
Temp Pulse Resp BP Pulse Ox
97.7 F 60 18 92/68 99
10/17/24 07:34 10/17/24 10:00 10/17/24 10:00 10/17/24 10:00 10/17/24 09:45
Lab Results
WBC 5.7 10^3/uL (4.8-10.8) 10/17/24 05:17
RBC 2.90 10^6/uL (4.70-6.10) L 10/17/24 05:17
Hgb 10.0 g/dL (13.0-18.0) L 10/17/24 05:17
Hct 27.5 % (39.0-52.0) L 10/17/24 05:17
Plt Count 45 10^3/uL (130-400) L D 10/17/24 05:17
Potassium 3.5 mmol/L (3.5-5.1) 10/17/24 05:17
Chloride 107 mmol/L (98-107) 10/17/24 05:17
Carbon Dioxide 24 mmol/L (22-30) 10/17/24 05:17
BUN 23 mg/dl (9-20) H 10/17/24 05:17
Creatinine 0.9 mg/dL (0.7-1.3) 10/17/24 05:17
eGFR > 60.00 10/17/24 05:17
Glucose 189 mg/dl (70-99) H 10/17/24 05:17
Calcium 7.1 mg/dl (8.4-10.2) L 10/17/24 05:17
Phosphorus 3.0 mg/dl (2.5-4.5) 10/17/24 05:17
Albumin 2.5 g/dl (3.5-5.0) L 10/17/24 05:17
Physical Exam
General: No Distress and Nontoxic
HEENT: Anicteric, Conjunctivae Clear and Dentition Intact
Respiratory: Clear and Nonlabored Respirations
Cardiac: S1/S2 and Regular Rate/Rhythm
Abdomen: Soft, Nontender, Nondistended and No Hepatosplenomegaly
Genito-urinary: No Costovertebral Tender
Musculoskeletal: No Clubbing, No Cyanosis and No Edema
Skin: No Rash and No Bruising
Neuro: Nonfocal/Grossly Intact
Psych: Appropriate
Data Reviewed
-
Radiology: Image Personally Visualized and interpreted
Labs: Labs Reviewed by me, Discussed with Physician and Discussed with Patient
Assessment/Plan
-
Impression
Hyponatremia
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
Septic shock secondary to above
Acute hemolytic anemia
Acute thrombocytopenia
Acute hypoxic respiratory insufficiency
Hyperbilirubinemia
Elevated transaminases
Primary hypertension
Plan
Hyponatremia likely secondary to volume depletion and excess ADH.
No urine studies prior to getting NSS to properly assess etiology.
Increase IV NSS to 100 mls/hr.
Follow BMP.
Agree with holding hydrochlorothiazide.
Serum sodium is improving appropriately with NSS; okay to continue paroxetine.
[2024-10-17 11:03] LABS: Sodium 132 mmol/L (135-145)
--- NOTE | 2024-10-17 12:33 | PTCARENOTE ---
No major changes in assessment. Patient resting comfortably. NSR on tele. VSS. Weaned to RA. Pulse ox 97-98%. Levophed off @ 1230.
--- NOTE | 2024-10-17 12:50 | CM ---
Initial assessment completed with patient and leah who live together in a 2 story home plus basement, B/B on 2nd with 1/2 bath on 1st, 1 step to enter. 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 No DME or in-home
services. No service. PCP is Dr. James Worthington and Pharmacy is [facility] in [place]. Discharge Plan of Care: Anticipate home with no needs.
--- NOTE | 2024-10-17 13:06 | PTCARENOTE ---
Patient BP 80/50's off Levophed. Levophed drip restarted at 1 mcg/min.
[2024-10-17] MEDS: LR 1000 IV (15:08)
--- NOTE | 2024-10-17 16:22 | PTCARENOTE ---
1L LR bolus administered as ordered. No complaints. Titrating Levophed for SBP >90. Remains off O2. Pulse ox 97%. Patient agreeable to get oob to chair for dinner. Repeat labs ordered for 1700.
[2024-10-17] MEDS: LOVENOX 40 MG SC (17:28)
--- NOTE | 2024-10-17 17:42 | PTCARENOTE ---
Patient assisted oob to chair with standby supervision.
[2024-10-17 17:56] LABS: Hematocrit 23.4 % (39.0-52.0); Hemoglobin 8.5 g/dL (13.0-18.0); Mean Corp Hgb Conc. 36.3 g/dL (33.0-37.0); Mean Corpuscular Volume 95.5 fL (80.0-94.0); Platelet Count 57 10^3/uL (130-400); Red Cell Dist. Width 13.5 % (11.5-14.5)
[2024-10-17 18:08] LABS: Sodium 129 mmol/L (135-145)
--- NOTE | 2024-10-17 20:00 | PTCARENOTE ---
laboratory supervisor, pt aaox3, OOB to chair, denies pain. SR HR 80-90s. RA IV x 3 WNL- IVF/Levo infusing per work list. RA Sat 97%. POC discussed, call morrissey with pt.
[2024-10-17] MEDS: PAXIL 20 MG PO (21:49)
[2024-10-18] VITALS (42 sets, daily range): BP systolic 82–115; BP diastolic 53–86; BMI 24.9
[2024-10-18] MEDS: LEVOPHED 250 IV (00:14)
[2024-10-18] MEDS: MOTRIN 400 MG PO ×3 (00:16→22:41)
--- NOTE | 2024-10-18 00:20 | PTCARENOTE ---
pt temp 101.3, prn motrin admin, no further changes in assessment.
--- NOTE | 2024-10-18 03:30 | PTCARENOTE ---
no changes in pt assessment.
[2024-10-18 04:14] LABS: Hematocrit 23.6 % (39.0-52.0); Hemoglobin 8.4 g/dL (13.0-18.0); Mean Corp Hgb Conc. 35.6 g/dL (33.0-37.0); Mean Corpuscular Volume 96.3 fL (80.0-94.0); Platelet Count 52 10^3/uL (130-400); Red Cell Dist. Width 13.4 % (11.5-14.5)
[2024-10-18 04:40] LABS: ALT (SGPT) 69 U/L (0-50); AST (SGOT) 75 U/L (17-59); Albumin 2.4 g/dl (3.5-5.0); Alkaline Phosphatase 88 U/L (38-126); Blood Urea Nitrogen 10 mg/dl (9-20); Calcium 7.5 mg/dl (8.4-10.2); Carbon Dioxide 26 mmol/L (22-30); Chloride 107 mmol/L (98-107); Estimated Creatinine Clearance > 125 ml/min; Glucose 125 mg/dl (70-99); Potassium 3.2 mmol/L (3.5-5.1); Sodium 132 mmol/L (135-145); Total Protein 5.3 g/dl (6.3-8.2); eGFR > 60.00
[2024-10-18] MEDS: NSS 1000 IV ×3 (05:00→22:40)
[2024-10-18 06:05] LABS: Absolute Neutrophils -Man Diff 3.0 10^3/uL (1.4-6.5); Anisocytosis 1+; Macrocytosis 3+; Normal RBC Morphology No; Platelets Checked Yes; Total Cells Counted 100
--- NOTE | 2024-10-18 07:25 | W.PN.INTV ---
Addendum entered and electronically signed by Candice Alvarez MD 10/18/24 14:48:
Patient is seen and examined independently by myself. Resident note reviewed below, agree with assessment and plan
Patient feeling much improved today. Denies chest pain, shortness of breath, nausea, abdominal pain.
Remains on pressors, unable to be weaned
Systolic pressure 90s to 100s, temperature 101.4
+2 L, urine output adequate
Chest exam is clear
Abdominal exam benign
Data reviewed
Total bilirubin improving
Hemoglobin stable at 8.4, platelets stable at 5.2
Potassium noted, 3.2
A/P
At this time, patient is clinically improved, parasitemia has improved
Unable to wean off pressors at this time but clinical improvement is encouraging
Continue to wean norepinephrine as able
Replete potassium
Primary service has discontinued Lovenox
Patient is high risk for thromboembolic disease, would consider resuming
However we will place with sequential teds and encourage simple exercises in the bed, out of bed to chair as able
Repeat CBC this p.m. per primary service
Would avoid transfusion unless absolutely needed, hemoglobin less than 7
Reviewed with critical care nursing, respiratory care, pharmacy
Reviewed with channing� at bedside
TCCT 31 min
Original Note:
Today's Communication / Plan
Recommendations
Plan summary:
- PM CBC
- trend BMP, LFTs
- continue antibiotics and follow-up co-infection screening
- try to wean pressors and assess
Recommendations are not final until attending attestation
Assessment
-
58 yo M PMH HTN p/w babesiosis hypotension c/f septic shock.
He appears clinically improved, despite the fever to 101.3 overnight, and the parasite smear is decreased to 3.8%. CBC is reassuringly stable, and the total bilirubin is decreasing as well.
He is on norepineprhine and his blood pressure has been 90s/60s.
Neuro:
- awake, alert
- Continue paroxetine
CV:
- norepinephrine, try to wean today to see how he does off pressors
- NS 100 mL/hr
Respiratory:
- RR in 20s
- appropriate SpO2, denies dyspnea
GI:
- trend LFTs
Renal:
- K+ has been repleted
- trend BMP
ID:
- azithromycin, atovaquone
- Monitor VS
- f/u ID recc: no need to exchange transfusion now
- f/u anaplasma/erlichia PCR and lyme screen
Heme:
- Anemia and thrombocytopenia due to infection
- f/u CBC PM
Endo:
- A1c of 5.1%
Plan summary:
- PM CBC
- trend BMP, LFTs
- continue antibiotics and follow-up co-infection screening
- try to wean pressors and assess
Recommendations are not final until attending attestation
Subjective Dataa
Subjective Data
Date of Service:
Date of Service: October 18, 2024
Subjective:
58 yo M PMH of HTN, hernia here for babesiosis and septic shock.
Interim events: Tmax overnight of 101.3, received ibuprofen. This morning, feels well. Denies dyspnea, chest pain, lightheadedness, abdominal pain.
Review of Systems
General: Other (per HPI)
Objective Data
Data Reviewed
Vital Signs / I&O / Oxygen:
Vital Signs
Temp Pulse Resp BP Pulse Ox
97.7 F 45 18 90/55 98
10/18/24 03:46 10/18/24 06:30 10/18/24 06:30 10/18/24 06:30 10/18/24 06:11
Intake and Output
10/17/24 10/18/24 10/19/24
06:59 06:59 06:59
Intake Total 712.5 / 1042.5 4965.3 / 4965.3
Output Total 650 / 1325 2975 / 2975
Balance 62.5 / -282.5 1989.3 / 1989.3
SaO2 98
Nasal Cannula flow liters per 2
minute
Physical Exam
General: Comfortable
HEENT: Anicteric
Cardiovascular: Regular Rhythm and Other (no murmur )
Respiratory: Clear
GI: Soft, Non Distended and Non Tender
Neurology: Awake and Alert
Skin: Warm and Dry
Labs/Micro/Reports
Lab Data
10/18/24 03:55
10/18/24 03:55
Hgb 8.4 from 8.5
Plt 52k from 45k
Na+ 132
K+ 3.2
Cr 0.7
Ca2+ 7.5
Total bili 1.9 (Down from 4.2 at admission)
AST/ALT: 75/69
HbA1c of 5.1
Microbiology
Repeat smear: 3.8% parasite burden
Blood culture showed no growth in 24h
10/17/24 00:15 Blood/Venous Blood Culture - Preliminary
No Growth in 24 hours- Final report to follow
10/17/24 00:15 Blood/Venous Blood Culture - Preliminary
No Growth in 24 hours- Final report to follow
10/16/24 20:52 Blood/Venous Blood Culture - Preliminary
No Growth in 24 hours- Final report to follow
10/16/24 20:52 Blood/Venous Blood Culture - Preliminary
No Growth in 24 hours- Final report to follow
10/16/24 22:00 Blood/Venous Blood Parasites Smear - Final
Babesia species
10/16/24 20:52 Nasal Swab Influenza Types A & B (THIERRY) - Final
Negative for Influenza A & B, NAAT
Negative results must be combined with clinical observations
and patient history.
Nucleic Acid Amplification test (NAAT)performed on the
[employer] ID NOW platform.
[2024-10-18] MEDS: KCL 40 MEQ PO (08:10)
[2024-10-18] MEDS: MEPRON SUSPENSION 750 MG PO ×2 (08:10→20:58)
[2024-10-18] MEDS: ZITHROMAX 500 MG IV (08:10)
--- NOTE | 2024-10-18 08:18 | W.PN.HOSP.TC ---
Today's Communication/Plan
-
IV Azithromycin/Atovaquone
wean Levophed as able
IVF per renal
monitor labs, repeat Hg this afternoon; blood consent signed
encourage ambulation (holding lovenox subQ while monitoring PLT)
appreciate Councilman, ID, Nephrology
Assessment / Plan
Assessment / Plan
Mr. Richar Hope is a 58 yo man with hx essential HTN, depression, presents to the ER with 4-5 days of malaise and fever found to have babesiosis and evidence of hemolysis.
CXR 10/16/24
IMPRESSION:
1. Normal heart size without evidence for acute pulmonary edema.
2. No radiographic evidence for pneumonia or pleural effusion.
3. Mild elevation of the left hemidiaphragm.
4. Moderate tortuosity of the distal descending thoracic aorta.
RUQ US
IMPRESSION:
Normal appearance of the gallbladder.
Common bile duct is mildly dilated, measuring 6.1 mm. No sonographic evidence for bile duct calculus.
Mild hepatomegaly. Mild splenomegaly.
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
Transaminitis
Hemolytic Anemia
Thrombocytopenia
-Azythromycin and Atovaquone initiated evening 10/16
-formal ID consult appreciated
-continue IV Azithromycin and Atovaquone
-check Lyme, Anaplasma/Erhlichia PCR to assess for co-infections.
-10/18: Parasitemia down to 3.8%, liver enzymes improving
-Hg dropped to 8.4, stable overnight. will repeat this afternoon. blood consent signed, transfuse for < 7-7.5
Septic shock 2/2 above
-weaning down Levophed
Hypoxic resp insufficiency
-patient currently denying shortness of breath, SpO2 100%
-weaned off of O2
Hyponatremia
-hold MANAGER MARKET DEVELOPMENT HCTZ
-appreciate renal
-continue IVF
Anxiety
-MANAGER MARKET DEVELOPMENT Praoxetine, likely OK to continue as Na improving with IVF
DVT PPx SCD 2/2 thrombocytopenia, received lovenox earlier in hospital course - will resume tomorrow if PLT improve
FULL CODE
51 minutes spent on patient care
Anticipated Discharge: > 48 hours
Subjective/Interval History
-
Date of Service: October 18, 2024
feeling much better
body aches improving
lack of appetite, drinking a lot
Objective Data
-
Labs:
Laboratory Results
10/18/24 10/18/24
03:55 16:00
WBC 4.3 L
Hgb 8.4 L Pending
Hct 23.6 L
Plt Count 52 L
Sodium 132 L
Potassium 3.2 L
Chloride 107
Carbon Dioxide 26
BUN 10
Creatinine 0.7
Glucose 125 H
Calcium 7.5 L
Total Bilirubin 1.9 H D
AST 75 H
ALT 69 H
Alkaline Phosphatase 88
Vital Signs:
Vital Signs
Temp Pulse Resp BP Pulse Ox
98.7 F 51 20 112/70 98
10/18/24 08:04 10/18/24 07:30 10/18/24 07:30 10/18/24 07:30 10/18/24 07:30
I&O
10/17/24 10/18/24 10/19/24
06:59 06:59 06:59
Intake Total 712.5 / 1042.5 4965.3 / 5080.3 222.5 / 222.5
Output Total 650 / 1325 2975 / 2975 500 / 500
Balance 62.5 / -282.5 1990.3 / 2105.3 -277.5 / -277.5
Review of Systems
-
History Source: Patient
All other systems: Reviewed and negative
Physical Exam
-
General: No Apparent Distress
HEENT: PERRLA
Respiratory: Clear to Auscultation; Negative Wheezes
Cardiac: Regular Rhythm and S1/S2
GI: Soft and Nontender
Musculoskeletal: No Edema
Skin: Warm and Dry; Negative Rash
Neuro: AO x 3
Psych: Calm
Data Reviewed
-
Diagnostic Radiology: Report Reviewed by me
Labs: Labs Reviewed by me
--- NOTE | 2024-10-18 09:21 | W.PN.ID1 ---
Date of Service
Date of Service: October 18, 2024
Today's Communication
Continue azithromycin and atovaquone.
Assessment / Plan
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
# Septic shock from babesiosis on pressor, weaning pressor
# Fever - persists
# Acute anemia, thrombocytopenia due to babesia
# Elevated LFT's due to babesia
# Acute hypoxic insufficiency - resolved
-Blood cx's negative
- Repeat parasite smear improved from 7.5% to 3.8%
- Continue azithromycin to 1000mg IV q24 and Atovaquone 750mg po bid (d2)
- Pt clinically improving. No need for exchange transfusions at this time.
- Continue ICU support
- Trend temps/cbc/LFT's
- Lyme screeen pending; Anaplasma/Erhlichia PCR pending to assess for co-infections.
Chief Complaint
-: Clinical Sepsis and Other (Babesiosis)
Subjective / Review of Systems
at bedside.
Pt feels much improved. off oxygen. No more SINGH. Less weak.
Vital Signs / Physical Exam
Vital Signs
Vital Signs
Temp Pulse Resp BP Pulse Ox
98.7 F 71 22 96/70 98
10/18/24 08:04 10/18/24 09:00 10/18/24 09:00 10/18/24 09:00 10/18/24 09:00
Selected Entries
10/18/24
00:15
Temp 101.3 F H
Physical Exam
Constitutional: No Acute Distress and Comfortable
Eyes: No Conjunctival Hemorrhage and Sclera Anicteric
Cardiovascular: Regular Rate
Pulmonary: Clear
Gastrointestinal: Soft, Non Tender, Non Distended and Normal Bowel Sounds
Genito-Urinary: Negative CVA Tenderness
Extremities: Negative Edema
Neurological: AO x 3
Objective Data
Lab Data
Lab Results
10/18/24 03:55
PT 15.9 Sec (11.4-14.6) H 10/17/24 05:17
INR 1.24 10/17/24 05:17
APTT 34.9 Sec (23.4-35.0) 10/17/24 05:17
Estimated Creat Clear > 125 ml/min 10/18/24 03:55
Lactic Acid Cancelled 10/17/24 00:30
Total Bilirubin 1.9 mg/dl (0.2-1.3) H D 10/18/24 03:55
AST 75 U/L (17-59) H 10/18/24 03:55
ALT 69 U/L (0-50) H 10/18/24 03:55
Alkaline Phosphatase 88 U/L (38-126) 10/18/24 03:55
Most recent labs reviewed.
Micro Results:
10/18/24 03:55 Blood Parasites Smear - Final
Blood/Venous Babesia species
10/17/24 00:15 Blood Culture - Preliminary
Blood/Venous No Growth in 24 hours- Final report to follow
10/17/24 00:15 Blood Culture - Preliminary
Blood/Venous No Growth in 24 hours- Final report to follow
10/16/24 20:52 Blood Culture - Preliminary
Blood/Venous No Growth in 24 hours- Final report to follow
10/16/24 20:52 Blood Culture - Preliminary
Blood/Venous No Growth in 24 hours- Final report to follow
10/16/24 22:00 Blood Parasites Smear - Final
Blood/Venous Babesia species
10/16/24 23:42 Urine Culture - Pending
Urine
10/16/24 20:52 Influenza Types A & B (THIERRY) - Final
Nasal Swab Negative for Influenza A & B, NAAT
Negative results must be combined with clinical observations
and patient history.
Nucleic Acid Amplification test (NAAT)performed on the
[employer] ID NOW platform.
10/16/24 CXR: Normal heart size without evidence for acute pulmonary edema. No radiographic evidence for pneumonia or pleural effusion.
10/17/24 ABD US: Normal appearance of the gallbladder. Common bile duct is mildly dilated, measuring 6.1 mm. No sonographic evidence for bile duct calculus. Mild hepatomegaly. Mild splenomegaly.
--- NOTE | 2024-10-18 09:30 | PTCARENOTE ---
Rec'd care of patient at 0700. Patient alert and oriented. MAEx4. SB/NSR on tele monitor. No edema. Palpable pulses. Lung sounds with scattered rhonchi. Diminished in b/l base. Pulse ox 98% on RA. Denies SOB. +BS. Tolerating regular diet. Ambulatory
to bathroom for void and bm. OOB to chair at 0920. Steady on feet. Denies lightheadedness. Levophed weaned off at 0914. See worklist for full assessment and care.
--- NOTE | 2024-10-18 10:31 | W.PN.NEPH.PH ---
Today's Communication / Plan
-
IVF
Assessment/Plan
-
Impression
Hyponatremia
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
Septic shock secondary to above
Acute hemolytic anemia
Acute thrombocytopenia
Acute hypoxic respiratory insufficiency
Hyperbilirubinemia
Elevated transaminases
Primary hypertension
Plan
continue IVF NSS
follow BMP
continue abx
wean levophed, if unable can add midodrine
-
-
Date of Service: October 18, 2024
CC / HPI / ROS
-
Chief Complaint:
hyponatremia
History of Present Illness:
Na up to 132 with IVF
remains hypotense on levophed
LFTs improving
abx for babesiosis
Review of Systems:
no CP/SOB
Labs
-
Labs:
WBC 4.3 10^3/uL (4.8-10.8) L 10/18/24 03:55
RBC 2.45 10^6/uL (4.70-6.10) L 10/18/24 03:55
Hct 23.6 % (39.0-52.0) L 10/18/24 03:55
Plt Count 52 10^3/uL (130-400) L 10/18/24 03:55
Sodium 132 mmol/L (135-145) L 10/18/24 03:55
Potassium 3.2 mmol/L (3.5-5.1) L 10/18/24 03:55
Chloride 107 mmol/L (98-107) 10/18/24 03:55
Carbon Dioxide 26 mmol/L (22-30) 10/18/24 03:55
BUN 10 mg/dl (9-20) 10/18/24 03:55
Creatinine 0.7 mg/dL (0.7-1.3) 10/18/24 03:55
eGFR > 60.00 10/18/24 03:55
Glucose 125 mg/dl (70-99) H 10/18/24 03:55
Calcium 7.5 mg/dl (8.4-10.2) L 10/18/24 03:55
Phosphorus 3.0 mg/dl (2.5-4.5) 10/17/24 05:17
Albumin 2.4 g/dl (3.5-5.0) L 10/18/24 03:55
Physical Exam
-
Vital Signs:
Vital Signs
Temp Pulse Resp BP Pulse Ox
98.7 F 101 23 91/67 100
10/18/24 08:04 10/18/24 10:00 10/18/24 10:00 10/18/24 10:00 10/18/24 10:00
Cardiovascular:: Regular rate and rhythm
Respiratory:: Bilateral: Coarse
Lung Excursion:: Normal
Abdomen:: Nontender and Soft
Bowel Sounds:: Normal
Extremity Edema:: None: Bilateral:
[2024-10-18 10:34] LABS: Glycohemoglobin (HgbA1c) 5.1 % (4.0-5.6)
--- NOTE | 2024-10-18 11:26 | PTCARENOTE ---
SBP<90. Per Senior Php Web Developer, goal is MAP>65.
--- NOTE | 2024-10-18 12:00 | PTCARENOTE ---
No changes in assessment. Patient remains off Levophed. VSS.
[2024-10-18 14:14] LABS: Lyme Antibody Screen, EIA Presump. Positive (Negative)
--- NOTE | 2024-10-18 15:59 | CM ---
Clinical improvement, febrile @ 100.9, IV/AB, IV Levophed and wean as tolerated. DIscharge POC: Home with no needs unless home with IV/AB.
--- NOTE | 2024-10-18 16:15 | PTCARENOTE ---
No changes. Repeat Hgb , type&screen sent. VSS.
[2024-10-18 16:28] LABS: Hemoglobin 7.9 g/dL (13.0-18.0)
[2024-10-18 17:27] LABS: Platelet Count 53 10^3/uL (130-400)
--- NOTE | 2024-10-18 17:59 | PTCARENOTE ---
Patient back oob to chair. No complaints. VSS. Good appetite. Ate 100% of dinner.
[2024-10-18] MEDS: LOVENOX 40 MG SC (20:57)
[2024-10-18] MEDS: PAXIL 20 MG PO (21:00)
--- NOTE | 2024-10-18 21:00 | PTCARENOTE ---
underwriting specialist, aaox3, RA IV x 3 WNL- IVF infusing per work list. POC discussed, call morrissey with pt. at bedside.
[2024-10-19] VITALS (13 sets, daily range): BP systolic 95–124; BP diastolic 60–91; BMI 25.7
--- NOTE | 2024-10-19 04:00 | SUR.OPER ---
no changes in pt assessment.
[2024-10-19] MEDS: MOTRIN 400 MG PO (04:32)
[2024-10-19 04:42] LABS: Hematocrit 22.0 % (39.0-52.0); Hemoglobin 8.0 g/dL (13.0-18.0); Mean Corp Hgb Conc. 36.4 g/dL (33.0-37.0); Mean Corpuscular Volume 95.7 fL (80.0-94.0); Platelet Count 55 10^3/uL (130-400); Red Cell Dist. Width 13.7 % (11.5-14.5)
[2024-10-19 05:06] LABS: ALT (SGPT) 73 U/L (0-50); AST (SGOT) 75 U/L (17-59); Albumin 2.4 g/dl (3.5-5.0); Alkaline Phosphatase 94 U/L (38-126); Blood Urea Nitrogen 9 mg/dl (9-20); Calcium 7.1 mg/dl (8.4-10.2); Carbon Dioxide 23 mmol/L (22-30); Chloride 108 mmol/L (98-107); Estimated Creatinine Clearance > 125 ml/min; Glucose 104 mg/dl (70-99); Potassium 4.0 mmol/L (3.5-5.1); Sodium 131 mmol/L (135-145); Total Protein 5.5 g/dl (6.3-8.2); eGFR > 60.00
--- NOTE | 2024-10-19 07:45 | W.PN.INTV ---
Addendum entered and electronically signed by Candice Alvarez MD 10/19/24 13:07:
Patient seen and examined independently by myself. Resident note reviewed below, agree with assessment and plan
Overall, patient feels much improved. Still having fevers but appetite is improved. Moving bowels, urinating without difficulty, denies shortness of breath, chest pain, abdominal pain
Fianc� at bedside
physical exam unchanged
However, mild basilar crackles noted
Data reviewed
Hemoglobin 8.0, platelets 55, stable
A/P
Moving forward, continue with supportive care
Continue doxycycline, azithromycin, atovaquone
Positive Lyme noted
Crackles on exam noted. Tolerating p.o. Discontinue IV fluids
Has been weaned off pressors
Patient would like to go home. This will be deferred to primary service
Follow-up will be important
Reviewed with symptoms to watch out for at length
Reviewed with critical care nursing, respiratory care, pharmacy
Once transferred out of ICU, we will sign off. Please call with questions
Original Note:
Today's Communication / Plan
Recommendations
Plan summary:
- azithromycin, atovaquone, doxycycline PO
- d/c fluids
- okay to discharge
Recommendations are not final until attending attestation
Assessment
-
58 yo M PMH HTN p/w babesiosis
He has been weaned off pressors.
cyclical overnight fever spikes can classically occur during Lyme infection with Borrelia. Given, presumptive positive Lyme screen, this may explain his fevers during nighttime.
Otherwise, his antibiotics have been made PO, and he feels well to go home.
Anticipatory guidance: patient should return to ED if experiences shortness of breath, bleeding, abdominal pain, lightheadedness, dizziness or otherwise feeling unwell.
Pertinent plan by organ system provided below
ID:
- abx: azithromycin 500mg q24, atovaquone 750 mg bid, doxycyline 100mg bid all PO
- follow ID reccs regarding repeat smear, outpatient follow-up
CV:
- stop fluids
Plan summary:
- azithromycin, atovaquone, doxycycline PO
- d/c fluids
- okay to discharge
Recommendations are not final until attending attestation
Subjective Dataa
Subjective Data
Date of Service:
Date of Service: October 19, 2024
Subjective:
58 yo M PMH of HTN, hernia here for babesiosis.
Interim events: weaned off norepinephrine yesterday. Fever to 101.7 overnight, received ibuprofen. Lyme screen was presumptive positive
this morning, feels extremely well and is keen to go home.
Review of systems is negative unless specific above
Objective Data
Data Reviewed
Vital Signs / I&O / Oxygen:
Vital Signs
Temp Pulse Resp BP Pulse Ox
98.6 F 102 22 99/65 95
10/19/24 03:11 10/19/24 06:01 10/19/24 06:01 10/19/24 06:01 10/19/24 06:01
Intake and Output
10/18/24 10/19/24 10/20/24
06:59 06:59 06:59
Intake Total 4965.3 / 5080.3 4026.3 / 4026.3
Output Total 2975 / 2975 1150 / 1150
Balance 1990.3 / 2105.3 2876.3 / 2876.3
SaO2 95
Nasal Cannula flow liters per 2
minute
Physical Exam
General: Comfortable
HEENT: Anicteric
Cardiovascular: Regular Rhythm and Other (no murmur )
Respiratory: Clear
GI: Soft, Non Distended and Non Tender
Neurology: Awake and Alert
Skin: Warm and Dry
Labs/Micro/Reports
Lab Data
10/19/24 04:29
10/19/24 04:29
Hgb 8.0 (from 7.9)
Plt 55 (from 53)
Na+ 131
Cr 0.7
TBili 2.3 (from 1.9)
AST/ALT 70s
Microbiology: Lyme screen is presumptive positive
Microbiology
10/17/24 00:15 Blood/Venous Blood Culture - Preliminary
No Growth in 48 hours- Final report to follow
10/17/24 00:15 Blood/Venous Blood Culture - Preliminary
No Growth in 48 hours- Final report to follow
10/16/24 20:52 Blood/Venous Blood Culture - Preliminary
No Growth in 48 hours- Final report to follow
10/16/24 20:52 Blood/Venous Blood Culture - Preliminary
No Growth in 48 hours- Final report to follow
10/16/24 23:42 Urine Urine Culture - Final
10/18/24 03:55 Blood/Venous Blood Parasites Smear - Final
Babesia species
10/16/24 22:00 Blood/Venous Blood Parasites Smear - Final
Babesia species
10/16/24 20:52 Nasal Swab Influenza Types A & B (THIERRY) - Final
Negative for Influenza A & B, NAAT
Negative results must be combined with clinical observations
and patient history.
Nucleic Acid Amplification test (NAAT)performed on the
[employer] platform.
--- NOTE | 2024-10-19 07:50 | W.PN.HOSP.TC ---
Addendum entered and electronically signed by Caterina Headley MD 10/19/24 08:09:
Doxycycline initiated - discussed with patient about taking with full glass water; sitting upright x 30 minutes to try to avoid GI upset
Original Note:
Today's Communication/Plan
-
see plan
Assessment / Plan
Assessment / Plan
Mr. Richar Hope is a 58 yo man with hx essential HTN, depression, presents to the ER with 4-5 days of malaise and fever found to have babesiosis and evidence of hemolysis.
CXR 10/16/24
IMPRESSION:
1. Normal heart size without evidence for acute pulmonary edema.
2. No radiographic evidence for pneumonia or pleural effusion.
3. Mild elevation of the left hemidiaphragm.
4. Moderate tortuosity of the distal descending thoracic aorta.
RUQ US
IMPRESSION:
Normal appearance of the gallbladder.
Common bile duct is mildly dilated, measuring 6.1 mm. No sonographic evidence for bile duct calculus.
Mild hepatomegaly. Mild splenomegaly.
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
Transaminitis
Hemolytic Anemia
Thrombocytopenia
-Azythromycin and Atovaquone initiated evening 10/16
-formal ID consult appreciated
-continue IV Azithromycin and Atovaquone
-Lyme presum positive - following up western blot, discussing with ID
-Anaplasma/Erhlichia PCR to assess for co-infections.
-10/18: Parasitemia down to 3.8%, liver enzymes improving
-Hg dropped to 8, stable overnight. blood consent signed, transfuse for < 7
Septic shock 2/2 above
-now off Levophed since morning of 10/18
Hypoxic resp insufficiency
-patient currently denying shortness of breath, SpO2 100%
-weaned off of O2
Hyponatremia
-improved, Na stable over 130
-hold CONSTRUCTION REPRESENTATIVE HCTZ
-appreciate renal
Anxiety
-CONSTRUCTION REPRESENTATIVE Paroxetine, likely OK to continue as Na improving with IVF
DVT PPx Lovenox subQ if PLT remains < 50
FULL CODE
51 minutes spent on patient care
Anticipated Discharge: 24 - 48 hours
Subjective/Interval History
-
Date of Service: October 19, 2024
weaned off Levophed
feeling well
hoping he can go home
Objective Data
-
Labs:
Laboratory Results
10/19/24
04:29
WBC 3.2 L
Hgb 8.0 L
Hct 22.0 L
Plt Count 55 L
Sodium 131 L
Potassium 4.0
Chloride 108 H
Carbon Dioxide 23
BUN 9
Creatinine 0.7
Glucose 104 H
Calcium 7.1 L
Total Bilirubin 2.3 H
AST 75 H
ALT 73 H
Alkaline Phosphatase 94
Vital Signs:
Vital Signs
Temp Pulse Resp BP Pulse Ox
98.6 F 102 22 99/65 95
10/19/24 03:11 10/19/24 06:01 10/19/24 06:01 10/19/24 06:01 10/19/24 06:01
I&O
10/18/24 10/19/24 10/20/24
06:59 06:59 06:59
Intake Total 4965.3 / 5080.3 4026.3 / 4026.3
Output Total 2975 / 2975 1150 / 1150
Balance 1990.3 / 2105.3 2876.3 / 2876.3
Review of Systems
-
History Source: Patient
All other systems: Reviewed and negative
Physical Exam
-
General: No Apparent Distress
HEENT: PERRLA
Respiratory: Clear to Auscultation; Negative Wheezes
Cardiac: Regular Rhythm and S1/S2
GI: Soft and Nontender
Musculoskeletal: No Edema
Skin: Warm and Dry; Negative Rash
Neuro: AO x 3
Psych: Calm
Data Reviewed
-
Diagnostic Radiology: Report Reviewed by me
Labs: Labs Reviewed by me
--- NOTE | 2024-10-19 08:13 | W.PN.ID1 ---
Date of Service
Date of Service: October 19, 2024
Today's Communication
See below.
Assessment / Plan
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
# s/p Septic shock from babesiosis on pressor, off pressor
# Fever - persists: Suspect due to co-infection with other tick-borne disease
#Pancytopenia due to tick-borne disease
# Elevated LFT's due to tick borne
# Acute hypoxic insufficiency - resolved
-Blood cx's negative
- Repeat parasite smear improved from 7.5% to 3.8%
-Lyme screen presumably positive, WB pending
- Anaplasma/Erhlichia PCR pending
-Pt adamant about leaving.
- Recommend azithromycin 500mg po q24 and Atovaquone 750mg po bid (d3 of 14) through 10/30/24
- Resume doxycycline 100mg po bid x 14d through 11/01/24. Avoid sun exposure while on doxycycline.
- Repeat parasite smear, CBC/diff, CMP before end of therapy, i.e 10/27 or 10/28.
Lab scripts electronically sent to [facility]; Copy placed in chart; 2nd copy gave to patient.
I will call him when results available.
- Highly stressed importance of insect prevention spring to fall every year.
- I addressed all their questions.
Chief Complaint
-: Clinical Sepsis and Other (Babesiosis)
Subjective / Review of Systems
Adamant about leaving today. He feels better except for the fevers and chills at night.
Vital Signs / Physical Exam
Vital Signs
Vital Signs
Temp Pulse Resp BP Pulse Ox
98.3 F 102 22 99/65 95
10/19/24 08:04 10/19/24 06:01 10/19/24 06:01 10/19/24 06:01 10/19/24 06:01
Selected Entries
10/18/24
23:09
Temp 101.7 F H
Physical Exam
Constitutional: No Acute Distress and Comfortable
Eyes: Other (slight sclera icterus)
Cardiovascular: Regular Rate
Pulmonary: Clear
Gastrointestinal: Soft, Non Tender, Non Distended and Normal Bowel Sounds
Genito-Urinary: Negative CVA Tenderness
Extremities: Negative Edema
Neurological: AO x 3
Objective Data
Lab Data
Lab Results
10/19/24 04:29
10/19/24 04:29
PT 15.9 Sec (11.4-14.6) H 10/17/24 05:17
INR 1.24 10/17/24 05:17
APTT 34.9 Sec (23.4-35.0) 10/17/24 05:17
Estimated Creat Clear > 125 ml/min 10/19/24 04:29
Lactic Acid Cancelled 10/17/24 00:30
Total Bilirubin 2.3 mg/dl (0.2-1.3) H 10/19/24 04:29
AST 75 U/L (17-59) H 10/19/24 04:29
ALT 73 U/L (0-50) H 10/19/24 04:29
Alkaline Phosphatase 94 U/L (38-126) 10/19/24 04:29
Most recent labs reviewed.
Micro Results:
10/17/24 00:15 Blood Culture - Preliminary
Blood/Venous No Growth in 48 hours- Final report to follow
10/17/24 00:15 Blood Culture - Preliminary
Blood/Venous No Growth in 48 hours- Final report to follow
10/16/24 20:52 Blood Culture - Preliminary
Blood/Venous No Growth in 48 hours- Final report to follow
10/16/24 20:52 Blood Culture - Preliminary
Blood/Venous No Growth in 48 hours- Final report to follow
10/16/24 23:42 Urine Culture - Final
Urine
10/18/24 03:55 Blood Parasites Smear - Final
Blood/Venous Babesia species
10/16/24 22:00 Blood Parasites Smear - Final
Blood/Venous Babesia species
10/16/24 20:52 Influenza Types A & B (THIERRY) - Final
Nasal Swab Negative for Influenza A & B, NAAT
Negative results must be combined with clinical observations
and patient history.
Nucleic Acid Amplification test (NAAT)performed on the
[employer] platform.
10/16/24 CXR: Normal heart size without evidence for acute pulmonary edema. No radiographic evidence for pneumonia or pleural effusion.
10/17/24 ABD US: Normal appearance of the gallbladder. Common bile duct is mildly dilated, measuring 6.1 mm. No sonographic evidence for bile duct calculus. Mild hepatomegaly. Mild splenomegaly.
Care Review
Plan reviewed with: Physician (Dr. Headley)
[2024-10-19] MEDS: MEPRON SUSPENSION 750 MG PO (08:14)
[2024-10-19] MEDS: ZITHROMAX 500 MG IV (08:14)
--- NOTE | 2024-10-19 09:15 | PTCARENOTE ---
Rec'd pt at 0800 awake alert and oriented resting in bed. Overall states he feels ok and really wants to be able to go home today. States he feels well enough to leave. Denies dizziness or headache. LOBO. Speech is clear. Skin is pink wm and dry.
Temp this am is 98.3. Respirs are unlabored on RA with sats of 96%. BS are sl decreased and coarse at the bases with few faint crackles at the bases. . Coughing a moist occasional non-prod cough. Denies shortness of breath. Monitor SR. + pulses. No
edema. VS as documented. Abd is soft with + BS. Denies nausea. Voiding sarthak/orange tinged urine in the urinal. Capped ints intact RAC and R hand. IV NS intially infusing at 100 ml/hr via R hand - Updated Dr. Angel and ok given to cap IV fluids.
IV fluids capped currently. KD SCD's om place. Dr. Headley and Dr. Gentile in to see pt and updated. Pts at the bedside and pt and aware of plan of care. Call morrissey in reach.
[2024-10-19] MEDS: VIBRAMYCIN 100 MG PO (09:20)
--- NOTE | 2024-10-19 11:00 | PTCARENOTE ---
Remains resting. Anxious and awaiting dc to home orders. Had pt ambulate in the hallway 1 loop around the ICU. Gait is steady and no c/o dizziness or headache. HR prior to ambulation in the 90's and with ambulation increased to 137 but back down as
soon as he sat down. Denied sob. States his legs felt better as he was walking. BP post ambulation 120/91. Currently pt sitting oob in the chair. Call morrissey in reach and at the bedside. Wants to wait until he gets home to take a shower.
Instructed pt to use caution and do things gradually and have his nearby
--- NOTE | 2024-10-19 11:06 | W.PN.NEPH.PH ---
Today's Communication / Plan
-
ok to d/c
Assessment/Plan
-
Impression
Hyponatremia
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
Septic shock secondary to above
Acute hemolytic anemia
Acute thrombocytopenia
Acute hypoxic respiratory insufficiency
Hyperbilirubinemia
Elevated transaminases
Primary hypertension
Plan
hyponatremia better at 131
BP better, holding BP meds and with out pressors
not to resume HCTZ in future
tolerating diet
continue abx
ok to d/c per renal
bmp next week
may do FR 50 ounces/day till next lab
d/w pt and family
d/w nursing and primary
-
-
Date of Service: October 19, 2024
CC / HPI / ROS
-
Chief Complaint:
hyponatremia
History of Present Illness:
Na stable at 132
bp improving
LFTs improving
abx for babesiosis
Review of Systems:
no CP/SOB
Labs
-
Labs:
WBC 3.2 10^3/uL (4.8-10.8) L 10/19/24 04:29
RBC 2.30 10^6/uL (4.70-6.10) L 10/19/24 04:29
Hgb 8.0 g/dL (13.0-18.0) L 10/19/24 04:29
Hct 22.0 % (39.0-52.0) L 10/19/24 04:29
Plt Count 55 10^3/uL (130-400) L 10/19/24 04:29
Sodium 131 mmol/L (135-145) L 10/19/24 04:29
Potassium 4.0 mmol/L (3.5-5.1) 10/19/24 04:29
Chloride 108 mmol/L (98-107) H 10/19/24 04:29
Carbon Dioxide 23 mmol/L (22-30) 10/19/24 04:29
BUN 9 mg/dl (9-20) 10/19/24 04:29
Creatinine 0.7 mg/dL (0.7-1.3) 10/19/24 04:29
eGFR > 60.00 10/19/24 04:29
Glucose 104 mg/dl (70-99) H 10/19/24 04:29
Calcium 7.1 mg/dl (8.4-10.2) L 10/19/24 04:29
Phosphorus 3.0 mg/dl (2.5-4.5) 10/17/24 05:17
Albumin 2.4 g/dl (3.5-5.0) L 10/19/24 04:29
Physical Exam
-
Vital Signs:
Vital Signs
Temp Pulse Resp BP Pulse Ox
98.3 F 96 22 104/76 97
10/19/24 08:04 10/19/24 09:00 10/19/24 09:00 10/19/24 09:00 10/19/24 09:00
Cardiovascular:: Regular rate and rhythm
Respiratory:: Bilateral: CTA
Lung Excursion:: Normal
Abdomen:: Nontender and Soft
Bowel Sounds:: Normal
Extremity Edema:: None: Bilateral:
Fonseca Catheter: No
--- NOTE | 2024-10-19 11:37 | W.DS.TRANS ---
DC Summary - [employer]
-
Discharge Instructions:
Discharge Diagnosis/Procedures Babesiosis and Lyme Disease
Diet Regular
Additional Diets restrict fluids to 50oz/day
Activity No strenuous activity
Additional Activity No contact sports
Driving Restrictions As prior to admission
Bathing Restrictions None
Blood Work Parasite smear, CBC with differential and CMP on
10/27 or 10/28
Instructions:
Stand-Alone Forms:
Changes to Home Medications: Yes
Discharge Medications:
DC Medications w/original date entered in [email or web address]
acetaminophen 500 mg tablet (Tylenol Extra Strength) 1,000 mg PO Q6HPRN PRN mild pain/fever 10/16/24
qqicgiuujagx-ety-yovue acid-vit K-lycop 400 mcg-20 mcg-370 mcg tablet (Men's 50 Plus Multivitamin) 1 tab PO HS Supplement 10/16/24
paroxetine HCl 20 mg tablet 20 mg PO HS Mental Health/Anxiety 10/16/24
atovaquone 750 mg/5 mL oral suspension 750 mg (5 mL) PO Q12 #115 mL 10/19/24
azithromycin 500 mg tablet 500 mg PO DAILY 11 days #11 tabs 10/19/24
doxycycline hyclate 100 mg capsule 100 mg PO BID Infection #27 caps 10/19/24
Home Medication Changes
Take Azithromycin 500mg daily every 24 hours and Atovaquone 750mg twice a day through 10/30/24
Take Doxycycline 100mg twice a day through 11/01/24
STOP Bisoprolol - Hydrochlorothiazide.
Pending Results: Yes
Additional Pending Results:
final Lyme, Anaplasma/Erhlichia PCR
--- NOTE | 2024-10-19 12:10 | CM ---
Patient has been medically cleared for discharge to home with no additional skilled services. Patient has arranged for transport home.
--- NOTE | 2024-10-19 13:00 | PTCARENOTE ---
Pt sitting oob in the chair- pt and aware of discharge. Capped ints removed from R hand, R wrist and R AC-sites wnl. VS as documented. Pt offers no complaints and assessment is unchanged. All discharge instructions given to pt and his -
called [facility] to ascertain that they received the prescriptions which they did. Pt dc at 1300 via wheelchair with . All belongings from room sent with pt
--- NOTE | 2024-10-19 14:41 | W.DCSUMMARY ---
Discharge Summary
Discharge Data
Date of Admission: 10/16/24
Date of Discharge: 10/19/24
-
Pending Results: No
Hospital Course
Discharging Physician : Dr. Caterina Headley
Disposition : Home
Principal Discharge diagnosis : Babesiosis and Lyme Disease
Hospital Course :
Mr. Richar Hope is a 58 yo man with hx essential HTN, depression, presents to the ER with 4-5 days of malaise and fever. He was started on Doxycycline as outpatient without resolution of symtpoms. He was febrile in ER to 100.5 and hypotensive
to 70/50. Labs with WBC 5.3, Hg 10.9, PLT 33. Na 123, K+ 3.2, Glucose 137. T. Bili 4.2, direct 1.8, AST 95, ALT 56, Alk Phos 132, LDH 995. Blood parasite smear prelim test showed ring forms inside red cells. He was started on IV Azithromycin
and Atovaquone per ID recs.
Patient was admitted to ICU for treatment of septic shock 2/2 likely Babesia. Final parasite smear confirmed Babesia following morning with parasitemia 7.5%. He was treated with Azithromycin and Atovaquone with improvement in symptoms. He was
weaned off of Levophed drip. Hyponatremia improved with IVF. Liver enzymes trended down. Patient's hemoglobin trended down to 8 but remained relatively stable for 24 hours prior to discharge. PLT count improved and remained stable > 50. Repeat
parasite smear showed decreased parasitemia to 3.8%.
Lyme resulted prior to discharge with prelim positive. He is therefore resumed on a 2 week course of oral Doxycycline.
Patient was very eager to go home. He is discharged with course of Azithromycin/Atovaquone and Doxycycline.
With hyponatremia he is told to stop HCTZ. He is also told to stop bisoprolol for now; his BP was low normal post discontinuation of pressors. BP will be monitored as outpatient.
He will follow up closely with PCP and get outpatient labs sent to Dr. Gentile's office.
Time spent on discharge was 45 minutes.
Important imaging findings :
CXR 10/16/24
IMPRESSION:
1. Normal heart size without evidence for acute pulmonary edema.
2. No radiographic evidence for pneumonia or pleural effusion.
3. Mild elevation of the left hemidiaphragm.
4. Moderate tortuosity of the distal descending thoracic aorta.
RUQ US
IMPRESSION:
Normal appearance of the gallbladder.
Common bile duct is mildly dilated, measuring 6.1 mm. No sonographic evidence for bile duct calculus.
Mild hepatomegaly. Mild splenomegaly.
Procedure findings :
Discharge Plan
-
Patient Disposition: Home (Routine Discharge)
Discharge Diagnosis/Procedures: Babesiosis and Lyme Disease
Diet: Regular
Additional Diets: restrict fluids to 50oz/day
Activity: No strenuous activity
Additional Activity: No contact sports
Driving Restrictions: As prior to admission
Bathing Restrictions: None
Blood Work: Parasite smear, CBC with differential and CMP on 10/27 or 10/28
Referrals:
PRIVATE,PHYSICIAN [Family Provider, Internal Medicine] - in less than 1 week
Lilly Gentile MD [Active, Infectious Diseases]
Additional Discharge Medication Instructions: Dr. Gentile will call you with results of lab studies.
Take Azithromycin 500mg daily every 24 hours and Atovaquone 750mg twice a day through 10/30/24
Take Doxycycline 100mg twice a day through 11/01/24
Doxycycline Precautions
�� Take with at least 6 oz H2O
�� Take with food but no calcium containing products like milk or cheese
�� Ideally you would not take any multivitamins, calcium, magnesium or zinc containing products.
�� If you must take one of these products make sure that the pills are by at least 3 hours.
�� Sit up for at least 30 minutes after each dose to prevent heartburn.
�� Your skin will be more sensitive to the sun while you are on doxycycline - it will be very easy for you to get a sunburn.
STOP Bisoprolol - Hydrochlorothiazide.
Hydrochlorothiazide is held with low sodium levels and dehydration
Bisoprolol is held because your blood pressure has been low in the hospital
Your primary care doctor will monitor your blood pressure (you can also obtain a cuff and record readings at home). It will then be determined if you are resumed back on your blood pressure medications. You may be resumed on Bisoprolol alone to
avoid low sodium levels.
Prescriptions:
New
atovaquone 750 mg/5 mL Suspension
750 mg PO Q12 Qty: 115 0RF
azithromycin 500 mg tablet
500 mg PO DAILY 11 Days Qty: 11 0RF
Continued
acetaminophen [Tylenol Extra Strength] 500 mg Tablet
1,000 mg PO Q6HPRN PRN (Reason: mild pain/fever)
paroxetine HCl 20 mg Tablet
20 mg PO HS
Men's 50 Plus Multivitamin 400-20-370 mcg Tablet
1 tab PO HS
doxycycline hyclate 100 mg capsule
100 mg PO BID Qty: 27 0RF
Patient Comments:
10/16/2024, filled on 10/14/2024 and instructed to take 1 capsule BID for 10 days.
Discontinued
bisoprolol-hydrochlorothiazide 5-6.25 mg Tablet
1 tab PO HS
ibuprofen 200 mg Tablet
600 mg PO Q6HPRN PRN (Reason: mild pain/fever)
Discharge Orders:
Discharge Patient (As Directed); Ordered 10/19/24
Ordered By: Caterina Headley
Discharge Date and Time
Discharge Date/Time: 10/19/24 13:00
Print Language: UPPER SORBIAN
[2024-10-20 21:58] LABS: Lyme Disease DNA by PCR Not Detected; Lyme Source Serum
[2024-10-22 18:54] LABS: Lyme Ab Western Blot IgG Negative (Negative); Lyme Ab Western Blot IgM Positive (Negative)
== END 2024-10-19 13:00 | disposition home or self-care (01) | DRG 871 ==
LOC: ICU 22:39
PROVIDERS: Nurse Practitioner Family; Registered Nurse; ADMITTING PHYSICIAN Internal Medicine; ATTENDING PHYSICIAN Student in an Organized Health Care Education/Training Program; CONSULT PHYSICIAN Internal Medicine Critical Care Medicine; CONSULT PHYSICIAN Internal Medicine Infectious Disease; EMERGENCY PHYSICIAN Emergency Medicine; OTHER PHYSICIAN Specialist
DX: A41.89 Other specified sepsis (principal); R65.21 Severe sepsis with septic shock; R17 Unspecified jaundice; B60.00 Babesiosis, unspecified; E87.1 Hypo-osmolality and hyponatremia; D61.818 Other pancytopenia; D59.9 Acquired hemolytic anemia, unspecified; A69.20 Lyme disease, unspecified; I10 Essential (primary) hypertension; E87.6 Hypokalemia; R74.01 Elevation of levels of liver transaminase levels; R73.9 Hyperglycemia, unspecified; K83.8 Other specified diseases of biliary tract; R16.2 Hepatomegaly with splenomegaly, not elsewhere classified; F32.A Depression, unspecified; E86.1 Hypovolemia; F41.9 Anxiety disorder, unspecified; R09.02 Hypoxemia; R06.89 Other abnormalities of breathing; Z87.891 Personal history of nicotine dependence; Z11.52 Encounter for screening for COVID-19
CPT/HCPCS: 36600; 71045; 76700; 80053; 81003; 81015; 82248; 82805; 82962; 83010; 83036; 83605; 83615; 83690; 83735; 84100; 84295; 85018; 85025; 85027; 85045; 85049; 85610; 85730; 86617; 86618; 86850; 86870; 86900; 86901; 86905; 87015; 87040; 87086; 87207; 87468; 87476; 87484; 87502; 87798; 87811; 93005; 96365; 96366; 96375; 99291; P9047